=== PATIENT | male | born 1935 | race Caucasian/White ===

== ENCOUNTER 2018-04-01 11:54 | Emergency (ER) | payer MEDICARE, SELFPAY ==
[2018-04-01 11:55] VITALS: BP 146/75; PULSE 80; RESP 18; TEMP 36.6; O2SAT 99; BMI 21.6
--- NOTE | 2018-04-01 12:00 | ED.RN ---
PT PAIN FREE. PT TO ROOM 9. EKG CALLED FOR
--- NOTE | 2018-04-01 12:07 | EKG12_ITS ---
Test Reason : CHEST PAIN Blood Pressure : / mmHG Vent. Rate : 073 BPM Atrial Rate : 073 BPM P-R Int : 184 ms QRS Dur : 070 ms QT Int : 378 ms P-R-T Axes : 061 -01 068 degrees QTc Int : 416 ms Sinus rhythm with Premature atrial complexes Low voltage QRS Possible Inferior infarct , age undetermined Abnormal ECG Confirmed by LYNNE HUTCHINS, BRANDON ([id number]), movie editor LOLI RIGGS ([id number]) on 04/04/2018 9:04:45 AM Referred By: LISA Confirmed By:BRANDON BATISTA MD
--- NOTE | 2018-04-01 12:11 | RAD_ITS ---
STUDY: X-RAY CHEST REASON FOR EXAM: Male, 82 years old. Chest pain TECHNIQUE: Single x2 AP portable view of the chest. COMPARISON: None. FINDINGS: There is a pattern of hyperlucency within the upper lung zones and increased interstitial markings in the lower lung zones. There is focal increased linear density within the record of the left lung base. There is no demonstrated pleural abnormality. Normal size heart. Normal mediastinum and beau. Normal visualized pulmonary arteries. There is atherosclerotic calcification of the aortic arch with tortuosity. There are diffuse degenerative changes of the visualized thoracic spine. Normal visualized ribs, clavicles, and shoulders. There is no demonstrated abnormality of the visualized soft tissue structures of the upper abdomen. RAD/Chest 1 View (Portable) IMPRESSION: Findings suggest possible underlying chronic lung disease. There is right lower lobe atelectasis and/or developing infiltrate. Electronically Signed: Odilia Estrada MD at 13:15 EST Tel , Service support ,
[2018-04-01 12:27] VITALS: BP 122/103; PULSE 74; RESP 14; O2SAT 97
[2018-04-01] MEDS: 0.9% Normal Saline 1,000 ML 150 ML IV (12:28)
[2018-04-01] MEDS: Aspirin 81 MG TAB.CHEW 324 MG PO (12:29)
[2018-04-01 12:41] LABS: Absolute Neutrophil Count 5.2 X10^3/uL (2.0-7.7); Basophil# 0.04 X10^3/uL; Basophil% 0.5 % (0-1); Eosinophils% 1.3 % (0-5); Hematocrit 40.8 % (40-54); Hemoglobin 13.9 g/dl (13.0-16.5); Lymphocyte % 25.5 % (19-41); Mean Corp Hgb Conc 34.1 g/gl (32-36); Mean Corpuscular Hgb 32.3 pg (27.0-32.0); Mean Corpuscular Volume 94.9 fL (80-94); Mean Platelet Vol. 10.3 fl (6.2-12.0); Monocyte# 0.46 X10^3/uL; Monocyte% 5.9 % (0-10); Neutrophil # 5.22 X10^3/uL (2.7-7.7); Neutrophil % 66.7 % (47-70); POSITIVE COUNT NO; POSITIVE DIFFERENTIAL NO; POSITIVE MORPHOLOGY NO; Platelet Count 254 K/mm3 (150-450); RBC Distribution Width CV 12.8 % (11.6-14.6); RBC Distribution Width SD 43.4 fl (35.1-43.9); White Blood Count 7.8 K/mm3 (4.4-11.0)
[2018-04-01 12:48] LABS: D-Dimer Quantitative (DVT/PE) 1.55 FEU/ug/m (0.27-0.49)
--- NOTE | 2018-04-01 12:52 | ED.RN ---
d-dimer 1.55
--- NOTE | 2018-04-01 12:52 | ED.RN ---
aware of d-dimer
--- NOTE | 2018-04-01 12:53 | CT_ITS ---
STUDY: CTA CHEST REASON FOR EXAM: Male, 82 years old. Chest pain and shortness of breath. RADIATION DOSAGE (If Supplied By Facility): CTDIvol = ( 11.74 ) mGy, DLP = ( 400.21 ) mGycm TECHNIQUE: The examination was performed with the intravenous administration of 75CC ml of Isovue 370 contrast material. Post-processing of the angiographic images was performed, with multiplanar reformation and 3D reconstruction. Individualized dose optimization techniques were used for this CT. COMPARISON: None. FINDINGS: Normal enhancement of the main pulmonary artery and right and left pulmonary arteries. Normal enhancement of the bilateral peripheral pulmonary arteries. There is no demonstrated pulmonary embolism. There is atherosclerotic calcification of the aortic arch with tortuosity. There is ectasia of the descending thoracic aorta without actual aneurysm. There is no demonstrated aortic dissection. Normal heart and pericardium. Normal mediastinum. Normal hilar regions. Normal visualized trachea and bronchi. The lungs are hyper expanded, with flattening of the hemidiaphragms. There is evidence for COPD, with diffuse interstitial thickening. There is a 1.1 cm spiculated nodule in the left upper lobe, axial image 183 and coronal image 156. The appearance is strongly suspicious for neoplasm. Normal pleura. There are no pleural effusions. Normal chest wall structures. There are degenerative changes of thoracic spine. Normal visualized upper abdomen. CT/CTA Chest W/WO Contrast IMPRESSION: No evidence for PE. COPD. 1.1 cm spiculated nodule in the left upper lobe, strongly suspicious for neoplasm. Electronically Signed: Gilberto Marquez MD at 14:26 EST , Service support ,
[2018-04-01 12:55] LABS: Anion Gap 9 (5-15); BUN 13 mg/dL (7-18); BUN/Creat Ratio 12.5 RATIO (10-20); Calcium,Total 8.7 mg/dL (8.5-10.1); Chloride 104 mmol/L (98-107); Creatinine, Serum 1.04 mg/dL (0.70-1.30); EST Glomerular Filtration Rate 72 mL/min (>60); Est Glom Filt Rate - Afr Amer 88 mL/min (>60); Estimated Creatinine Clearance 53.52 ml/min; Glucose 114 mg/dL (74-106); Potassium 4.4 mmol/L (3.5-5.1); Sodium Level 137 mmol/L (136-145)
[2018-04-01 14:24] LABS: Mucous, Urine 0 SEEN /hpf (<or=2+); Red Blood Cells-Urine 0 SEEN /hpf (0-5); Squamous Epithelial Cells - UA 0 SEEN /hpf (0-5)
[2018-04-01 14:27] LABS: Color, Urine Yellow (Yellow); Glucose, Dipstick Normal (Normal); Ketone-Dipstick Negative (Negative); Leukocyte Esterase-Dipstick 500 /ul (Negative); Nitrite-Dipstick Negative (Negative); Occult Blood-Urine 25 /ul (Negative); Protein-Dipstick Negative (Negative); Specific Gravity, Urine 1.005 (1.002-1.030); Urine Bilirubin Dipstick Negative (Negative); Urine Clarity Cloudy (Clear); Urine Urobilinogen Normal (Normal)
[2018-04-01 14:32] LABS: Bacteria 2+ /hpf (None Seen); White Blood Cells >100 SEEN /hpf (0-5)
--- NOTE | 2018-04-01 14:56 | ED.DCSUM_ITS ---
- ER Visit Summary Date of Service: 04/01/18 Chief Complaint: [Shortness of breath and generalized weakness.] History of Present Illness: The patient is a 82 M [presents to the emergency department with complaint of shortness of breath and feeling generally weak. Patient states he is not had much energy. Patient states that he had chest discomfort 5 days ago that lasted a couple of days but then resolved. Patient states that it was just the discomfort that he knew was there and he could really feel that when he took a deep breath. Patient states that he has not had chest pain with activity or exertion. He denied any nausea or vomiting with it. He denies any diaphoresis. Patient was seen at urgent care today and advised to come to the emergency department to be evaluated. Patient also states that his last stress test was about 3 years ago and was normal. Patient states that also he has had very dark urine that is been odorous. Patient denies any fevers.] Physical Examination: [HEENT-PERRLA, EOMI. Cranial nerves II through XII grossly intact. TMs clear. Mucous membranes moist. No adenopathy. Cardiovascular-regular rate and rhythm without murmur or ectopy Lungs-clear to auscultation, chest wall stable without crepitus or subcu emphysema Abdomen-normoactive bowel sounds, soft, nontender, no rebound or rigidity, no peritoneal signs. Extremities-intact ?4, normal range of motion, normal pulses, atraumatic] Test Results: [EKG obtained arrival shows sinus rhythm with a ventricular rate of 73 bpm with possible old inferior infarct. CBC with differential showing a 7.8, hemoglobin 13.9, hematocrit 41, platelets 254. Chemistries unremarkable. Troponin was less than 0.015. D-dimer was elevated 1.55. CT scan of the chest with IV contrast ordered showed no evidence for PE or dissection. Patient did have a 1.1 cm spiculated nodule left upper lobe which is suspicious for neoplasm. Urinalysis was positive for 500 leukocyte esterase, greater than 100 WBCs, and +2 bacteria.] Emergency Department Course and Treatment: [Patient was given Rocephin 1 g IV.] Treatment Plan: [Patient does not want to be admitted. He will be started on Keflex and a urine culture was sent. I do not feel his chest pain is cardiac in nature. Patient advised to follow-up with his primary care physician within next 3-5 days.] Disposition: [Discharged home in stable condition] Impression: [UTI Generalized weakness Chest pain-etiology uncertain] This note was generated with [employer] dictation software. It may contain incorrect words, spelling, and punctuation that were not noted in review of the chart prior to signing ED Disposition - Plan for ED Patient: Chief Complaint: Chest Pain Referrals: Lavelle Nolasco MD [Primary Care Provider] -
--- NOTE | 2018-04-01 14:56 | ED.DEP ---
ED Disposition - Plan for ED Patient: Chief Complaint: Chest Pain Instructions: ED Chest Pain Atypical Unkn Cause, ED UTI Cystitis Male Prescriptions: Cephalexin [Keflex] 500 mg PO Q6 #40 cap Referrals: Lavelle Nolasco MD [Primary Care Provider] - 3-5 Days
[2018-04-01 15:21] VITALS: BP 153/105; PULSE 66; RESP 18
[2018-04-01] MEDS: Ceftriaxone 1 GM/50 ML BAG IV (15:23)
== END 2018-04-01 15:51 | disposition home or self-care (01) ==
LOC: ED 12:27
PROVIDERS: Emergency Provider Emergency Medicine; Family Provider Internal Medicine; PCP Internal Medicine
DX: N39.0 Urinary tract infection, site not specified (principal); B96.89 Other specified bacterial agents as the cause of diseases classified elsewhere; R91.1 Solitary pulmonary nodule; R53.1 Weakness; R07.9 Chest pain, unspecified; R06.02 Shortness of breath; I10 Essential (primary) hypertension; I73.9 Peripheral vascular disease, unspecified; N40.0 Benign prostatic hyperplasia without lower urinary tract symptoms; Z79.899 Other long term (current) drug therapy; Z72.0 Tobacco use
CPT/HCPCS: 71045; 71275; 80048; 81001; 84484; 85025; 85379; 87086; 87088; 87186; 93005; 96361; 96365; 99285; J7030; Q9967; A4216

== ENCOUNTER → 2018-07-03 | Outpatient (CLI) | payer MEDICARE, SELFPAY ==
[2018-07-03 12:44] LABS: Erythrocyte Sedimentation Rate 7 mm/hr (0-20)
[2018-07-03 12:50] LABS: Absolute Lymphocyte Count 2.02 X10^3/ul (0.83-4.51); Absolute Neutrophil Count 5.8 X10^3/uL (2.0-7.7); Basophil# 0.02 X10^3/uL; Basophil% 0.2 % (0-1); Eosinophil# 0.13 X10^3/uL; Eosinophils% 1.5 % (0-5); Hematocrit 39.4 % (40-54); Lymphocyte # 2.02 X10^3/ul (4.0); Lymphocyte % 23.2 % (19-41); Mean Corpuscular Hgb 31.5 pg (27.0-32.0); Mean Corpuscular Volume 95.4 fL (80-94); Mean Platelet Vol. 10.7 fl (6.2-12.0); Monocyte# 0.69 X10^3/uL; Monocyte% 7.9 % (0-10); Neutrophil # 5.83 X10^3/uL (2.7-7.7); Platelet Count 257 K/mm3 (150-450); RBC Distribution Width CV 13.3 % (11.6-14.6); RBC Distribution Width SD 46.7 fl (35.1-43.9); Red Blood Count 4.13 M/mm3 (4.6-6.2); White Blood Count 8.7 K/mm3 (4.4-11.0)
[2018-07-03 12:53] LABS: POSITIVE COUNT NO; POSITIVE DIFFERENTIAL NO; POSITIVE MORPHOLOGY NO
[2018-07-03 13:09] LABS: AST(SGOT) 24 U/L (15-37); Alanine Aminotransfer ALT/SGPT 29 U/L (16-61); Albumin, Serum 3.7 g/dL (3.2-5.0); Alkaline Phosphatase 56 U/L (45-117); Anion Gap 6 (5-15); BUN 16 mg/dL (7-18); CRP 3.89 mg/L (0.0-3.0); Calcium,Total 8.8 mg/dL (8.5-10.1); Chloride 105 mmol/L (98-107); Creatinine, Serum 1.14 mg/dL (0.70-1.30); EST Glomerular Filtration Rate 65 mL/min (>60); Est Glom Filt Rate - Afr Amer 79 mL/min (>60); Globulin 3.6 g/dL (2.2-4.2); Glucose 97 mg/dL (74-106); Potassium 4.4 mmol/L (3.5-5.1); Protein, Total 7.3 g/dL (6.4-8.2); Rheumatoid Factor < 10.0 IU/mL (<15); Sodium Level 138 mmol/L (136-145)
[2018-07-05 11:23] LABS: CCP IgG Antibodies 8 units (0-19); HEPATITIS B SURFACE AG Negative (Negative); Hep B Surface Antibodies Non Reactive (.); Hep C Antibodies <0.1 s/co ratio (0.0-0.9)
[2018-07-05 11:25] LABS: ANTINUCLEAR ANTIBODIES DIRECT Negative (Negative)
== END | disposition home or self-care (01) ==
LOC: MTLAB 10:04
PROVIDERS: Family Provider Internal Medicine; PCP Internal Medicine; Referring Provider Internal Medicine Rheumatology; Visit Provider Internal Medicine Rheumatology
DX: M06.4 Inflammatory polyarthropathy (principal); M15.9 Polyosteoarthritis, unspecified; Q66.7 Congenital pes cavus; K21.9 Gastro-esophageal reflux disease without esophagitis; I10 Essential (primary) hypertension; J44.9 Chronic obstructive pulmonary disease, unspecified; I73.9 Peripheral vascular disease, unspecified; I71.2 Thoracic aortic aneurysm, without rupture; E78.5 Hyperlipidemia, unspecified; N40.1 Benign prostatic hyperplasia with lower urinary tract symptoms; H35.373 Puckering of macula, bilateral
CPT/HCPCS: 36415; 80053; 85025; 85652; 86038; 86140; 86200; 86431; 86706; 86803; 87340

== ENCOUNTER → 2018-08-30 14:03 | Outpatient (CLI) | payer MEDICARE, SELFPAY ==
[2018-08-30 15:40] LABS: Absolute Lymphocyte Count 1.92 X10^3/ul (0.83-4.51); Absolute Neutrophil Count 5.8 X10^3/uL (2.0-7.7); Basophil# 0.03 X10^3/uL; Basophil% 0.3 % (0-1); Eosinophil# 0.18 X10^3/uL; Eosinophils% 2.1 % (0-5); Hematocrit 38.7 % (40-54); Hemoglobin 12.8 g/dl (13.0-16.5); Lymphocyte # 1.92 X10^3/ul (4.0); Lymphocyte % 22.3 % (19-41); Mean Corp Hgb Conc 33.1 g/gl (32-36); Mean Corpuscular Hgb 31.1 pg (27.0-32.0); Mean Corpuscular Volume 94.2 fL (80-94); Mean Platelet Vol. 10.7 fl (6.2-12.0); Monocyte# 0.71 X10^3/uL; Monocyte% 8.2 % (0-10); Neutrophil # 5.76 X10^3/uL (2.7-7.7); Neutrophil % 66.9 % (47-70); Platelet Count 256 K/mm3 (150-450); RBC Distribution Width CV 13.5 % (11.6-14.6); RBC Distribution Width SD 44.6 fl (35.1-43.9); Red Blood Count 4.11 M/mm3 (4.6-6.2); White Blood Count 8.6 K/mm3 (4.4-11.0)
[2018-08-30 15:55] LABS: ALB/GLOB Ratio 1.1 RATIO (0.9-2.4); AST(SGOT) 18 U/L (15-37); Alanine Aminotransfer ALT/SGPT 30 U/L (16-61); Albumin, Serum 3.6 g/dL (3.2-5.0); Alkaline Phosphatase 59 U/L (45-117); Anion Gap 5 (5-15); BUN 18 mg/dL (7-18); BUN/Creat Ratio 15.8 RATIO (10-20); Calcium,Total 8.7 mg/dL (8.5-10.1); Chloride 103 mmol/L (98-107); Creatinine, Serum 1.14 mg/dL (0.70-1.30); EST Glomerular Filtration Rate 65 mL/min (>60); Est Glom Filt Rate - Afr Amer 79 mL/min (>60); Globulin 3.4 g/dL (2.2-4.2); Glucose 103 mg/dL (74-106); POSITIVE COUNT NO; POSITIVE DIFFERENTIAL NO; POSITIVE MORPHOLOGY NO; Potassium 3.7 mmol/L (3.5-5.1); Sodium Level 136 mmol/L (136-145)
== END ==
PROVIDERS: Family Provider Internal Medicine; PCP Internal Medicine; Referring Provider Internal Medicine Rheumatology; Visit Provider Internal Medicine Rheumatology
DX: M06.4 Inflammatory polyarthropathy (principal); M15.9 Polyosteoarthritis, unspecified; Q66.7 Congenital pes cavus; K21.9 Gastro-esophageal reflux disease without esophagitis; I10 Essential (primary) hypertension; J44.9 Chronic obstructive pulmonary disease, unspecified; I73.9 Peripheral vascular disease, unspecified; I71.2 Thoracic aortic aneurysm, without rupture; E78.5 Hyperlipidemia, unspecified; N40.1 Benign prostatic hyperplasia with lower urinary tract symptoms; H35.373 Puckering of macula, bilateral
CPT/HCPCS: 36415; 80053; 85025

== ENCOUNTER → 2018-11-29 08:29 | Outpatient (CLI) | payer MEDICARE, SELFPAY ==
[2018-11-29 10:18] LABS: Absolute Lymphocyte Count 1.71 X10^3/uL (0.83-4.51); Absolute Neutrophil Count 6.6 X10^3/uL (2.0-7.7); Basophil# 0.05 X10^3/uL; Basophil% 0.5 % (0-1); Eosinophil# 0.11 X10^3/uL; Eosinophils% 1.2 % (0-5); Hematocrit 39.6 % (40-54); Lymphocyte # 1.71 X10^3/ul (4.0); Lymphocyte % 18.8 % (19-41); Mean Corp Hgb Conc 32.8 g/dL (32-36); Mean Corpuscular Hgb 32.1 pg (27.0-32.0); Mean Corpuscular Volume 97.8 fL (80-94); Mean Platelet Vol. 10.4 fl (6.2-12.0); Monocyte% 6.6 % (0-10); NRBC Flagged by Analyzer 0 % (0-5); Neutrophil # 6.61 X10^3/uL (2.7-7.7); Neutrophil % 72.6 % (47-70); Platelet Count 263 K/mm3 (150-450); RBC Distribution Width SD 47.2 fl (35.1-43.9); Red Blood Count 4.05 M/mm3 (4.6-6.2); White Blood Count 9.1 K/mm3 (4.4-11.0)
[2018-11-29 10:52] LABS: ALB/GLOB Ratio 0.9 RATIO (0.9-2.4); AST(SGOT) 21 U/L (15-37); Alanine Aminotransfer ALT/SGPT 21 U/L (16-61); Albumin, Serum 3.5 g/dL (3.2-5.0); Alkaline Phosphatase 67 U/L (45-117); Anion Gap 8 (5-15); BUN 16 mg/dL (7-18); BUN/Creat Ratio 14.5 RATIO (10-20); Calcium,Total 8.9 mg/dL (8.5-10.1); Chloride 105 mmol/L (98-107); EST Glomerular Filtration Rate 68 mL/min (>60); Est Glom Filt Rate - Afr Amer 82 mL/min (>60); Globulin 3.8 g/dL (2.2-4.2); Glucose 83 mg/dL (74-106); Potassium 4.4 mmol/L (3.5-5.1); Protein, Total 7.3 g/dL (6.4-8.2); Sodium Level 138 mmol/L (136-145)
== END ==
PROVIDERS: Family Provider Internal Medicine; PCP Internal Medicine; Referring Provider Internal Medicine Rheumatology; Visit Provider Internal Medicine Rheumatology
DX: M06.4 Inflammatory polyarthropathy (principal); M15.9 Polyosteoarthritis, unspecified; Q66.7 Congenital pes cavus; K21.9 Gastro-esophageal reflux disease without esophagitis; I10 Essential (primary) hypertension; J44.9 Chronic obstructive pulmonary disease, unspecified; I73.9 Peripheral vascular disease, unspecified; I71.2 Thoracic aortic aneurysm, without rupture; E78.5 Hyperlipidemia, unspecified; N40.1 Benign prostatic hyperplasia with lower urinary tract symptoms; H35.373 Puckering of macula, bilateral; Z79.899 Other long term (current) drug therapy
CPT/HCPCS: 36415; 80053; 85025

== ENCOUNTER → 2019-01-08 07:50 | Outpatient (CLI) | payer MEDICARE, SELFPAY ==
--- NOTE | 2019-01-08 08:30 | PET_ITS ---
EXAMINATION: FDG PET/CT INDICATIONS: An 83-year-old male with reported history of pulmonary nodularity. COMPARISON EXAMINATION: CT of the chest report dated 12/22/18 INDEX LESION SIZE SUV INTERPRETATION Left upper lateral lung zone, left upper lobe 14.1-mm (frame 197) 3.1 Fulfills quantitative criteria for viable neoplasm, histopathologic analysis recommended Right mid anterior hemithorax pulmonary parenchyma, right upper lobe 12.0-mm (frame 180) 5.7 Fulfills quantitative criteria for viable neoplasm, histopathologic analysis recommended TECHNIQUE: Following the intravenous administration of 15.5 mCi of F-18 deoxyglucose via the left antecubital fossa, multiplanar image acquisitions of the neck, chest, abdomen and pelvis to level of mid thigh, obtained at one hour post radiopharmaceutical administration contemporaneously interpreted with the current CT of the neck, chest, abdomen and pelvis to level of mid thigh, dated 01/08/[address] of the chest report dated 12/22/18 reveal: SERUM GLUCOSE LEVEL: 84 mg/dl. HEIGHT: 70 inches. WEIGHT: 155 lbs. FINDINGS: 1. Focal increased glucose metabolism is identified in the left upper lateral hemithorax pulmonary parenchyma, left upper lobe, generating a calculated maximal standard uptake value of 3.1. The maximal axial diameter of the corresponding parenchymal density on review of CT of the chest dated 01/08/19 is 14.1-mm (transverse). 2. Facilitated FDG uptake is defined in the right mid anteromedial lung field, right upper lobe, generating a calculated maximal standard uptake value of 5.7. The maximal axial diameter of the corresponding parenchymal density on review of CT of the chest dated 01/08/19 is 12.0-mm. 3. Normal physiologic distribution of the radiopharmaceutical is apparent in the hepatic (2.5) and splenic parenchyma, both renal units, bladder and visualized intestinal tract. The visualized portion of the cerebral cortex demonstrate symmetric and preserved glucose metabolism. Diffuse radiopharmaceutical concentration is noted in all four quadrants of the abdomen and pelvis. Prominent glucose metabolism is defined in the oral cavity which appears in proximity to dental hardware placement most consistent with a component of metallic reconstruction artifact. (Baron et al, AJR 179:1337, 2002). Pertinent CT findings are as follows: CHEST: A hiatal hernia is defined. Coronary arterial calcification is observed. Atherosclerotic calcification is noted in the thoracic aorta. The maximal axial diameter of the ascending thoracic aorta is 38.3-mm. Emphysematous change is noted in the bilateral upper lung zones. Parenchymal densities defined in the right mid anterior and left upper lateral lung hodgson demonstrate quantitatively significant enhanced glucose metabolism as previously described. Bilateral axillary soft tissue is non-glucose avid. ABDOMEN AND PELVIS: There is atherosclerotic calcification defined in the abdominal aorta without evidence of dilatation-aneurysm formation. Abdominal-pelvic arterial calcification is observed. Bilateral inguinal soft tissue densities with fatty hilus formation are non-glucose avid. Colonic diverticulosis is defined without evidence of diverticulitis. SKELETAL: Degenerative changes are noted in the cervical, thoracic and lumbar spine. PET/PET/CT Tumor Base -Thigh Init IMPRESSION: 1. Increased glucose concentration observed in the left upper lateral and right mid anterior lung hodgson, to include the left upper and right upper lobes, fulfill quantitative criteria for viable neoplasm. Histopathologic analysis is recommended. 2. Prominent radiopharmaceutical concentration observed in the oral cavity in proximity to dental hardware placement is most consistent with metallic reconstruction artifact. If soft tissue mass formation is a diagnostic consideration, clinical examination is recommended. Electronic Signature Modesto Verdugo D.O. Electronically Signed: Modesto Verdugo DO at 22:27 EDT Tel , Service support ,
== END ==
PROVIDERS: Family Provider Internal Medicine; PCP Internal Medicine; Referring Provider Internal Medicine Pulmonary Disease; Visit Provider Internal Medicine Pulmonary Disease
DX: R91.1 Solitary pulmonary nodule (principal)
CPT/HCPCS: 78815; A9552

== ENCOUNTER → 2019-01-23 08:15 | Outpatient (CLI) | payer MEDICARE, SELFPAY ==
[2019-01-23] VITALS (12 sets, daily range): BP systolic 121–197; BP diastolic 69–109; PULSE 57–68; RESP 12–24; TEMP 36.5; O2SAT 18–99; BMI 22.2
--- NOTE | 2019-01-23 | IMM_PTH ---
PATIENT: SUNNY MILLER LOC: CT U#:[id number] AGE/SX: 89/M ROOM: RE01/23/[address]: Dr. Jona Fierro MD : 1935 BED: DIS: SPEC #: [id number] RECD: 01/24/19 11:19 STATUS: JOELLE REQ #: [id number] REMIGIO: 01/23/19 00:[address]: Jona Fierro DEPT: IMMUNOHISTOCHEMISTRY RECD BY: Kylie Pool ENTERED: 01/24/19 11:21 SP TYPE: IMMUNO OTHR DR: Dr. Lavelle Nolasco MD Tissues: Lung, NOS Procedures: Synapto (add) CD45 (add) CD56 (add) CEA (add) CHROMO (add) CK20 (add) CK7 (add) CK8 (add) KI-67 (add) TTF1 (add) Pankeratin (initial) NSE (add) PHYSICIAN & INSTITUTION [place] [id number] SPECIMEN INFORMATION: Tissue Source: Right upper lobe lung mass, CT-guided core biopsy Clinical Info: Right upper lobe lung mass Specimen Number: [id number] CPT code: 49577, 58895 x11 METHODOLOGY: Deparaffinized sections of prefer/formalin-fixed tissue or PAP/DQ stained slides are incubated with monoclonal/polyclonal antibodies/oligonucleotide probes. Localization is made via biotin free immunoperoxidase method. Appropriate controls are performed and reacted as expected. Results on target cell population are indicated in the following table: RESULTS: ANTIBODY / CLONE RESULT AE1-3 (AE1/AE3/PCK26) positive CK7 (OV-TL12/30) positive CK8 (38qtqsJ68) positive CK20 (KS20.8) negative CD45 (RP2/18) negative CD56 (123C3.D5) positive Chromo (LK2H10) positive Synapto (polyclonal) positive NSE Neuron Specific Enolase negative CEA (11-7/TF-3HB-1) positive Ki-67 (30-9) positive, >90% TTF-1 (8G7G3/1) positive These tests were developed and their performance characteristics determined by [facility]. They may not have been cleared or approved by the U.S. Food and Drug Administration. The FDA has determined that such clearance or approval is not necessary. The above immunohistochemical/dualISH markers are ordered and reviewed by the Pathologist. 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 AM:amy 01/25/19 Case has been reviewed in consultation with Dr. Black who concurs with the above diagnosis. IDC:SJ
--- NOTE | 2019-01-23 08:32 | CT_ITS ---
PROCEDURE: CT GUIDED CORE NEEDLE BIOPSY OF A right upper lobe LUNG LESION INDICATION: Male, 83 years old. Right upper and left upper lobe lung nodules. PHYSICIAN: Dr. Scottie Zelaya CONSENT: Written informed consent was obtained having explained the risks, benefits and alternatives in detail with the patient who accepted the risks and agreed to proceed. Laboratory review and clinical assessment was performed. CONSCIOUS SEDATION PROTOCOL: The Drugs used were: 2 mg Versed, IV., and 50 mcg Fentanyl, IV. The sedation time was: 19 minutes. Conscious sedation was started at 9:51 AM and terminated at 10:10 AM. The conscious sedation protocol was independently monitored. RADIATION DOSAGE (If Supplied By Facility): CTDIvol = ( 21 ) mGy, DLP = ( 345.16 ) mGycm Individualized dose optimization techniques were used for this CT. TECHNIQUE: The patient was placed in the supine position. A noncontrast CT was performed to localize the lesion in the right upper lobe . The skin surface was prepped and draped in a sterile fashion. 1% lidocaine was used for local anesthesia. Using CT guidance, a 20-gauge coaxial biopsy device was advanced to the periphery of the lesion. A total of 5 core specimens were obtained. The specimens were placed in a formalin solution. A post procedure CT demonstrated no adverse sequelae or pneumothorax. The patient tolerated the procedure well without adverse event. A negative biopsy does not exclude malignancy. Further imaging or clinical followup based on patient condition and degree of clinical suspicion for malignancy. Suggest rebiopsy, if biopsy results do not match with clinical scenario. CT/Biopsy/Inj or Needle Placement IMPRESSION: 1. CT directed core needle biopsy of the right upper lobe lung nodule using CT image guidance with image documentation as described. Pathology results are pending. 2. Conscious Sedation protocol utilized with independent monitoring. Electronically Signed: Anthony Rubin, at 11:14 EDT , Service support ,
[2019-01-23 08:34] LABS: Hematocrit 45.6 % (40-54); Hemoglobin 14.7 g/dL (13.0-16.5); Mean Corp Hgb Conc 32.2 g/dL (32-36); Mean Corpuscular Hgb 31.7 pg (27.0-32.0); Mean Corpuscular Volume 98.5 fL (80-94); Mean Platelet Vol. 9.9 fl (6.2-12.0); Platelet Count 259 K/mm3 (150-450); RBC Distribution Width CV 13.1 % (11.6-14.6); RBC Distribution Width SD 47.4 fl (35.1-43.9); Red Blood Count 4.63 M/mm3 (4.6-6.2); White Blood Count 7.5 K/mm3 (4.4-11.0)
[2019-01-23 08:42] LABS: International Normalized Ratio 1.1; Prothrombin Time (Protime)PT. 13.6 SECONDS (11.7-14.9)
[2019-01-23] MEDS: Midazolam 2 MG/2 ML Syringe IV (09:51)
[2019-01-23] MEDS: 0.9% Saline Lock 10 ML Syringe IV (09:51)
[2019-01-23] MEDS: fentaNYL 100 MCG/2 ML Ampul IV (09:51)
--- NOTE | 2019-01-23 10:05 | ASPIGT_PTH ---
PATIENT: SUNNY MILLER LOC: [place] U#:[id number] AGE/SX: 89/M ROOM: RE01/23/[address]: Dr. Jona Fierro MD : 1935 BED: DIS: SPEC #: [id number] RECD: 01/23/19 10:39 STATUS: JOELLE REMeseret #: [id number] REMIGIO: 01/23/19 10:[address]: Jona Fierro DEPT: SURGICAL PATHOLOGY RECD BY: Abdoul Sebastian ENTERED: 01/23/19 10:39 SP TYPE: ASP RAD OTHR DR: Dr. Lavelle Nolasco MD Tissues: Lung, NOS Procedures: FNA Specimen Adequacy Special Stain Group II Surgery Specimen Level IV Imprint (control) HEADER OPERATION: CT-guided right lung biopsy PRE-OP DIAGNOSIS: Right lung mass TISSUE SUBMITTED: Right upper lobe lung mass, CT-guided core biopsy MICROSCOPIC DIAGNOSIS Right upper lobe of lung mass, CT guided needle core biopsy: Positive for malignant cells consistent with small cell carcinoma. COMMENT The specimen is evaluated at the time of biopsy by Dr. Black. Immediate Evaluation = Atypical cells noted suspicious for malignancy. Case has been reviewed in consultation with Dr. Black who concurs with the above diagnosis. IDC:SHIRA MICROSCOPIC DESCRIPTION Slides are reviewed. GROSS DESCRIPTION Received in fixative is one container labeled with the patient's name and designated right lung biopsy. The specimen consists of multiple irregular fragments of kathleen soft tissue that in aggregate measure 0.3 x 0.1 x <0.1 cm. The entire specimen is submitted in one cassette. / SHIRA:amy 01/23/19 TC:0 CPT:45428,09136
--- NOTE | 2019-01-23 10:15 | RAD_ITS ---
STUDY: X-RAY CHEST REASON FOR EXAM: Male, 83 years old. Immediate postright lung biopsy radiograph TECHNIQUE: AP inspiration and expiration views. COMPARISON: Comparison is made with prior study dated September 29, 2018. FINDINGS: Approximately 5-10% right pneumothorax on the immediate post right lung biopsy radiograph. The patient is asymptomatic at this time. Follow-up will be obtained. RAD/Chest Insp/Exp 2 View IMPRESSION: Small right pneumothorax on the immediate post right lung biopsy. Electronically Signed: Anthony Rubin, at 11:03 EDT , Service support ,
--- NOTE | 2019-01-23 11:01 | RAD_ITS ---
STUDY: X-RAY CHEST REASON FOR EXAM: Male, 83 years old. Chest pain and shortness of breath following a right lung biopsy. TECHNIQUE: Single AP portable view of the chest. COMPARISON: Comparison is made with prior study earlier today. FINDINGS: EKG electrodes are seen. The right-sided pneumothorax has progressed. The patient is referred to the emergency department for treatment. RAD/Chest 1 View IMPRESSION: Increased right pneumothorax. Appropriate therapy will be instituted. Electronically Signed: Anthony Rubin, at 13:02 EDT , Service support ,
== END ==
PROVIDERS: Family Provider Internal Medicine; PCP Internal Medicine; Referring Provider Internal Medicine Pulmonary Disease; Visit Provider Internal Medicine Pulmonary Disease
DX: R91.1 Solitary pulmonary nodule (principal); J95.811 Postprocedural pneumothorax
CPT/HCPCS: 32405; 77012; 36415; 71045; 71046; 85027; 85610; 88172; 88305; 88313; 88341; 88342; 99156; 99157; J7040; A4216

== ENCOUNTER 2019-01-23 11:23 | Observation (INO) | payer MEDICARE, SELFPAY ==
[2019-01-23] VITALS (7 sets, daily range): BP systolic 111–190; BP diastolic 63–111; PULSE 59–71; RESP 15–24; TEMP 36.3–37.1; O2SAT 92–99; BMI 22.2; BMI 21.4; BMI 21.5
--- NOTE | 2019-01-23 11:54 | ED.VISSUMM ---
- ER Visit Summary Date of Service: 01/23/19 Chief Complaint: Right pneumothorax status post lung biopsy History of Present Illness: The patient is a 83 M 2 hypertension, peripheral arterial disease and high cholesterol. Patient was having lung biopsy done in radiology today. He developed a pneumothorax post biopsy. He is having mild shortness of breath. Prior to the procedure he said he felt fine. He is on a blood thinner which is been stopped for the last 4 to 5 days due to the procedure. Physical Examination: Older male no acute distress. Sitting upright at bedside. Vital signs are stable his pulse ox is 94% on 2 L. H EENT exam unremarkable. Neck nontender. Lungs diminished on the right. No crepitance or subcu air. Heart regular rhythm rate about 70 no murmur. Abdomen soft nontender. Patient moving all 4 extremities no edema. Neurologically is awake and alert with no focal motor deficits. Test Results: Chest x-ray prior to arrival in the emergency department shows a moderate sized right thorax. There also is a density in both upper lung hodgson this is what they previously biopsied I believe. Post Heimlich valve thoracostomy tube insertion the right lung is currently well inflated. The thoracostomy tube in to the chest cavity about 2 inches. There is a small amount of subcu air at the insertion site. Emergency Department Course and Treatment: Patient be set up for a right sided Heimlich valve thoracostomy tube. Seizure note. I explained the procedure to the patient. His right lateral chest wall was cleaned with iodine. Locally anesthetized with Xylocaine. And at about nipple level I want above the rib in place the Heimlich valve. Patient tolerated procedure well. Under local anesthetic initially did not need anything for pain. He then had some discomfort and was given morphine IV and Zofran. Post insertion chest tube the lung currently is well expanded. Treatment Plan: For pain control patient will be admitted overnight. Have spoken to the hospitalist and the casting molder applications architect today. Disposition: 23-hour observation. Impression: Acute right-sided pneumothorax status post CAT scan guided lung biopsy Heimlich valve placed by emergency physician Admission for pain control This note was generated with [employer] dictation software. It may contain incorrect words, spelling, and punctuation that were not noted in review of the chart prior to signing ED Disposition - Plan for ED Patient:
--- NOTE | 2019-01-23 13:53 | RAD_ITS ---
STUDY: X-RAY CHEST REASON FOR EXAM: Male, 83 years old. Chest tube placement for right pneumothorax. TECHNIQUE: Single AP portable view of the chest. COMPARISON: Comparison is made with prior study earlier in the day. FINDINGS: A small caliber right-sided chest tube has been placed. The tip is in the mid lateral aspect of the right hemithorax. Minimal residual right apical pneumothorax. The lungs are clear and expanded. There is no demonstrated pleural abnormality. Normal size heart. Normal mediastinum and beau. Normal visualized pulmonary arteries. There is atherosclerotic calcification of the aortic arch with tortuosity. Mild degree of right subcutaneous emphysema. RAD/Chest 1 View (Portable) IMPRESSION: Status post placement of a small-caliber right-sided chest tube with mild residual right apical pneumothorax. Small amount of right subcutaneous emphysema. Electronically Signed: Anthony Rubin, at 14:24 EDT , Service support ,
--- NOTE | 2019-01-23 14:19 | ED.RN ---
PT COMPLAINING OF SEVERE PAIN APPROX 15 MIN AFTER CHEST TUBE, DR MEJIA IN ROOM, XRAY IN ROOM, NEW ORDERS FOR PAIN PAIN PER MD.
[2019-01-23] MEDS: Morphine 4 MG/ML Syringe IV ×2 (14:23→14:37)
[2019-01-23] MEDS: Ondansetron 4 MG/2 ML Vial IV (14:24)
--- NOTE | 2019-01-23 15:25 | HP.PCM_ITS ---
Problem List (1) Pneumothorax after biopsy Status: Acute History of Present Illness Date of Admission: 01/23/19 Chief Complaint: chest pain The patient is a 83 year old M who underwent a CT-guided biopsy of a lung mass today. Patient developed chest pain and was found to have a pneumothorax. Sent to the emergency room and had a Heimlich chest tube placed by the emergency room physician. Follow-up chest x-ray showed significant improvement of the pn eumothorax. Patient was having significant pain in his chest and patient did receive a total of 12 mg of morphine in the emergency room which did significantly improve his pain still is persistent. Patient was a short of breath but that is improving as well. Patient is never had a pneumothorax before. [] Past Medical History Past Medical History (Chronic Problems): Chronic Problems Tobacco dependence syndrome (Chronic) PVD (peripheral vascular disease) (Chronic) HTN (hypertension) (Chronic) BPH (benign prostatic hyperplasia) (Chronic) Allergies ciprofloxacin Allergy (Verified 01/23/19 11:27) Hives Home Medications: Ambulatory Orders Medication Instructions Recorded Cilostazol 100 mg PO BID 04/01/18 Enalapril Maleate [Vasotec] 5 mg PO DAILY 04/01/18 Omeprazole 40 mg PO DAILY 04/01/18 Oxybutynin Chloride [Oxybutynin 30 mg PO DAILY 04/01/18 Chloride ER] Simvastatin 20 mg PO DAILY 04/01/18 traMADol [Ultram] 50 mg PO BID PRN PRN 04/01/18 Acetaminophen [Tylenol Extra 500 mg PO BID PRN 01/23/19 Strength] Alfuzosin HCl [Alfuzosin HCl ER] 10 mg PO DAILY 01/23/19 Aspirin [Aspirin, Baby] 81 mg PO DAILY@0800 01/23/19 Folic Acid 2 mg PO DAILY 01/23/19 Meloxicam [Mobic] 15 mg PO DAILY 01/23/19 Methotrexate Sodium [Methotrexate] 15 mg PO SA 01/23/19 Multivit-Min/FA/Lycopen/Lutein 1 tab PO DAILY 01/23/19 [Centrum Silver Men Tablet] leucovorin tablet 2.5 mg PO WOO 01/23/19 Smoking Status: Current every day smoker - *Family History Maternal History Items: - - No cancer Review of Systems Constitutional: Denies: Anorexia, Fever, Night Sweats Eyes: Denies: Blurred vision, Double vision HEENT: Denies: Head Aches, Sinus Congestion, Sinus Drainage Cardiovascular: Reports: Chest Pain. Denies: Edema Respiratory: Reports: Shortness of Breath. Denies: Cough Gastrointestinal: Denies: Abdominal Pain, Nausea, Vomiting Comment: All review systems are good except for as mentioned above and in HPI. VTE Information - Inpt Only VTE Present on Admission: No VTE Mechan Device Prophylaxis: None VTE Pharm Prophylaxis ordered?: No Reason prophylaxis not ordered:: Procedure Not Indicated Patient Problems: Active and Suspected Problems Pneumothorax after biopsy (Acute) - Physical Exam Vitals/I&O's: Vital Signs Temp Pulse Resp BP Pulse Ox 36.6 C 66 18 140/77 H 93 01/23/19 11:24 01/23/19 14:51 01/23/19 14:51 01/23/19 14:51 01/23/19 14:51 Oxygen Flow Rate (L/min) 6 Oxygen Delivery Method Nasal Cannula Weight: 70.307 kg Body Mass Index (BMI) 22.2 General: Alert, Cooperative, No apparent distress, - - Side of the bed hunched over a bedside table. No conversational dyspnea. Patient's on nasal cannula is in his mouth. HEENT: Atraumatic, Normocephalic Oral: Moist Mucosa, No Gingival or Mucosal Lesions/ Ulcerations Neck: No Nodes, Trachea Midline Lungs: Normal air movement, No rhonchi, No wheeze, - - Crackles right lower lobe Cardiovascular: Regular rate, Regular Rhythm, Normal S1, Normal S2, No murmurs Abdomen: Bowel Sounds Present, Soft, Non Tender, Non-Distended Extremities: No edema, No Calf Tenderness, Cyanosis Skin: No rashes, No breakdown Musculoskeletal: No Tenderness to Palpation of Joints or Extremities, No Muscle Wasting Neurological: Muscle tone normal, Sensory exam intact to light touch and pain Psych/Mental Status: Appropriate, Anxious Clinical Impression(s) from Imaging Studies Chest X-Ray 01/23/19 13:53 IMPRESSION: Status post placement of a small-caliber right-sided chest tube with mild residual right apical pneumothorax. Small amount of right subcutaneous emphysema. Electronically Signed: Anthony Rubin, at 14:24 EDT , Service support , Assessment/Plan All Active Problems Pneumothorax after biopsy (Acute) 1. Pneumothorax * Iatrogenic from biopsy but may also be called given by the patient's underlying COPD * Improved from insertion of the Heimlich valve * Pulmonary on consult to guide length of time to keep the chest tube in place * Repeat chest x-ray in the morning * Patient with chest pain post biopsy and pneumothorax. Improved at this time. Patient advised that his pain will be completely eradicated most likely but plan is to help mitigate the pain but also keep him functional as well. 2. VTE prophylaxis: Low risk as the patient is observation status at this time. 3. Advanced care planning: Patient wishes to be DNR Comfort Care arrest with no intubation. Case discussed with the patient's at bedside. Code Visit OBSV E&M: 42160 Initial observation care L3
[2019-01-23] MEDS: Tamsulosin HCl 0.4 MG Capsule PO (18:29)
[2019-01-23] MEDS: Cilostazol 50 MG Tablet 100 MG PO (18:29)
[2019-01-23] MEDS: Lisinopril 5 MG Tablet PO (18:31)
[2019-01-23] MEDS: Folic Acid 1 MG Tablet 2 MG PO (18:31)
[2019-01-23] MEDS: Aspirin 81 MG TAB.CHEW PO (18:33)
[2019-01-23] MEDS: Atorvastatin Calcium 10 MG Tablet PO (20:58)
[2019-01-24 02:16] VITALS: BP 90/48; PULSE 66; RESP 18; TEMP 36.8; O2SAT 94
[2019-01-24 03:57] VITALS: BP 89/56; PULSE 69; RESP 18; TEMP 37.1; O2SAT 96
[2019-01-24 05:52] VITALS: BP 115/67; PULSE 84; RESP 18; TEMP 36.6; O2SAT 95
[2019-01-24 08:20] VITALS: BP 104/59; PULSE 73; RESP 16; TEMP 36.9; O2SAT 97
[2019-01-24] MEDS: Cilostazol 50 MG Tablet 100 MG PO (08:20)
[2019-01-24] MEDS: Meloxicam 15 MG Tablet PO (08:21)
[2019-01-24] MEDS: Multivitamins,Ther W-Minerals Tablet 1 TABLET PO (08:21)
[2019-01-24] MEDS: Tolterodine Tartrate 4 MG CAP.SA PO (08:22)
[2019-01-24] MEDS: Pantoprazole Sodium 40 MG Tablet PO (08:22)
[2019-01-24] MEDS: Lisinopril 5 MG Tablet PO (08:26)
[2019-01-24] MEDS: Aspirin 81 MG TAB.CHEW PO (08:26)
[2019-01-24] MEDS: Folic Acid 1 MG Tablet 2 MG PO (08:26)
--- NOTE | 2019-01-24 09:02 | RAD_ITS ---
STUDY: X-RAY CHEST REASON FOR EXAM: Male, 83 years old. Pneumothorax TECHNIQUE: Single frontal view of the chest. COMPARISON: The prior day. FINDINGS: Interval removal of the chest tube. No significant residual pneumothorax. Small subcutaneous emphysema in the right superior chest wall. Cardiac silhouette unremarkable. Pulmonary vascularity unremarkable. Aorta unremarkable. No focal airspace opacities. No pleural effusions. Upper abdomen unremarkable. Osseous structures intact. No pneumothorax. RAD/Chest 1 View (Portable) IMPRESSION: Removal of chest tube. No significant residual pneumothorax is identified. Electronically Signed: Tj Scruggs, at 13:07 EDT Tel , Service support ,
--- NOTE | 2019-01-24 10:59 | DCINST_ITS ---
- Discharge Diagnoses Current Active Problems: Current Active and Chronic Problems Pneumothorax after biopsy (Acute) You will use the following diet at home:: Cardiac Your food should be the consistency of: Regular Your liquids should be the consistency of: Regular/Thin Discharge Activity: Return to Normal Activity Call your doctor if you observe: Fever of 101 or Higher, Shortness of breath, Dizziness, Fainting spells, Swelling in the ankles, Chest pain, Increased palpitations (irregular heartbeat) Allergies/Adverse Reactions: Allergies ciprofloxacin Allergy (Verified 01/23/19 11:27) Hives Medications to take at Discharge Cilostazol 100 mg PO BID 04/01/18 Enalapril Maleate [Vasotec] 5 mg PO DAILY 04/01/18 Omeprazole 40 mg PO DAILY 04/01/18 Oxybutynin Chloride [Oxybutynin Chloride ER] 30 mg PO DAILY 04/01/18 Simvastatin 20 mg PO DAILY 04/01/18 traMADol [Ultram] 50 mg PO BID PRN PRN 04/01/18 Acetaminophen [Tylenol Extra Strength] 500 mg PO BID PRN 01/23/19 Alfuzosin HCl [Alfuzosin HCl ER] 10 mg PO DAILY 01/23/19 Aspirin [Aspirin, Baby] 81 mg PO DAILY@0800 01/23/19 Folic Acid 2 mg PO DAILY 01/23/19 Meloxicam [Mobic] 15 mg PO DAILY 01/23/19 Methotrexate Sodium [Methotrexate] 15 mg PO SA 01/23/19 Multivit-Min/FA/Lycopen/Lutein [Centrum Silver Men Tablet] 1 tab PO DAILY 01/23/19 leucovorin tablet 25 mg PO WOO 01/23/19 Primary Care Physician: Lavelle Nolasco MD [Primary Care Provider] - Please follow up with your Primary Care Physician in: 3-5 days Test Results: Test results from this visit will be discussed in further detail at your follow- up appointment, if applicable.
--- NOTE | 2019-01-24 11:02 | PCM.DC.SUM ---
Discharge Date and Diagnosis - Problem List Patient Problems: Active and Suspected Problems Pneumothorax after biopsy (Acute) Date of Admission: 01/23/19 Date of Discharge: 01/24/19 - Primary Discharge Diagnosis Active and Suspected Problems Pneumothorax after biopsy (Acute) - Secondary Discharge Diagnosis Chronic Problems Tobacco dependence syndrome (Chronic) PVD (peripheral vascular disease) (Chronic) HTN (hypertension) (Chronic) BPH (benign prostatic hyperplasia) (Chronic) Hospital Course and Treatment Imaging Results: CXR: IMPRESSION: Status post placement of a small-caliber right-sided chest tube with mild residual right apical pneumothorax. Small amount of right subcutaneous emphysema. CXR: Consults: Pulmonology Operations: None Procedures: - - Lung Biopsy and chest tube placement Summary of Care Provided: Per HPI: The patient is a 83 year old M who underwent a CT-guided biopsy of a lung mass today. Patient developed chest pain and was found to have a pneumothorax. Sent to the emergency room and had a Heimlich chest tube placed by the emergency room physician. Follow-up chest x-ray showed significant improvement of the pneumothorax. Patient was having significant pain in his chest and patient did receive a total of 12 mg of morphine in the emergency room which did significantly improve his pain still is persistent. Patient was a short of breath but that is improving as well. Patient is never had a pneumothorax before. Hospital Course: 1. Post-lung biopsy pneumothorax-83 yo M with a h/o of a lung mass had a biopsy done in radiology on the day of admission and after the procedure he had a pneumothorax. He was sent to the ED where a chest tube was placed. This morning he was feeling well and on exam it was noticed that his chest tube had fallen out. The bandage was removed and a repeat CXR was obtained which was normal without a pneumothorax. Pulmonology was consulted to assist in his management and felt that since there was no pneumo on repeat CXR after the chest tube had fallen out, he could be discharged without any pulmonary follow-up unless he became symptomatic which was discussed with him. He was discharged today and he will need to f/u with his PCP as an outpatient. The risks and benefits of discharge were discussed with him and expressed understanding. 2. His other medical diagnoses were evaluated and his home medications were continued where appropriate. Patient Problems: Active and Suspected Problems Pneumothorax after biopsy (Acute) - Physical Exam Vitals/I&O's: Vital Signs Temp Pulse Resp BP Pulse Ox 98.5 F 73 16 104/59 L 97 01/24/19 08:20 01/24/19 08:20 01/24/19 08:20 01/24/19 08:20 01/24/19 08:20 Oxygen Flow Rate (L/min) 2 Oxygen Delivery Method Room Air Weight: 151 lb 12.8 oz Body Mass Index (BMI) 21.4 Intake and Output for Last 24 Hours 01/22/19 01/23/19 01/24/19 23:59 23:59 23:59 Intake Total 240 / 740 1300 / 1300 Balance 240 / 740 1300 / 1300 General: Alert, Oriented x3, Cooperative, No apparent distress HEENT: Atraumatic, PERRLA, EOMI, Normocephalic Oral: Moist Mucosa Neck: Supple, No JVD Lungs: Clear to auscultation, Normal air movement, No rhonchi, No wheeze, No rales, - - Chest fell out on its own Cardiovascular: Regular rate, Regular Rhythm, Normal S1, Normal S2, No murmurs Abdomen: Soft, Non Tender, Non-Distended, No Hepato-splenomegaly Extremities: No edema, Capillary Refill Less than 3 Seconds Skin: No rashes, No breakdown Neurological: Neuro grossly intact, Sensory exam intact to light touch and pain Psych/Mental Status: Normal Affect, Appropriate Current Medications Acetaminophen (Tylenol) 650 mg PO Q6H PRN PRN PRN Reason: Pain Score 1-3/Temp > 100.7 F Albuterol Sulfate (Ventolin Aerosols) 2.5 mg INHALATION Q2H PRN PRN PRN Reason: Shortness of Breath/Wheezing Aspirin (Aspirin, Baby) 81 mg PO DAILY@0800 [facility] Last Admin: 01/24/19 08:26 Dose: 81 mg Documented by: Atorvastatin Calcium (Lipitor) 10 mg PO QHS [facility] Last Admin: 01/23/19 20:58 Dose: 10 mg Documented by: Cilostazol (Pletal) 100 mg PO BIDAC [facility] Last Admin: 01/24/19 08:20 Dose: 100 mg Documented by: Dextrose (D50w Syringe) 0 gm IV X1 PRN; Protocol PRN Reason: Hypoglycemia Folic Acid (Folic Acid) 2 mg PO DAILYCM [facility] Last Admin: 01/24/19 08:26 Dose: 2 mg Documented by: Glucagon () 1 mg IM .X1 PRN PRN Reason: Hypoglycemia Leucovorin Calcium () 25 mg PO WOO [facility] Lisinopril (Zestril) 5 mg PO DAILY [facility] Last Admin: 01/24/19 08:26 Dose: 5 mg Documented by: Melatonin (Melatonin) 3 mg PO QHS PRN PRN PRN Reason: INSOMNIA Meloxicam (Mobic) 15 mg PO DAILY [facility] Last Admin: 01/24/19 08:21 Dose: 15 mg Documented by: Methotrexate (Methotrexate) 15 mg PO [facility] Morphine Sulfate () 2 mg IV Q3H PRN PRN PRN Reason: breakthrough pain Multivitamins/Minerals (Multivitamin With Minerals) 1 tablet PO DAILY@0800 [facility] Last Admin: 01/24/19 08:21 Dose: 1 tablet Documented by: Ondansetron HCl (Zofran) 4 mg IV Q8H PRN PRN PRN Reason: NAUSEA/VOMITING Oxycodone HCl (Oxyir) 5 mg PO Q4H PRN PRN PRN Reason: Pain Score 4-5/10 Oxycodone HCl (Oxyir) 10 mg PO Q4H PRN PRN PRN Reason: Pain Score 6-10/10 Pantoprazole Sodium (Protonix) 40 mg PO DAILY [facility] Last Admin: 01/24/19 08:22 Dose: 40 mg Documented by: Senna/Docusate Sodium (Senokot-S, Megan-Colace) 2 tablet PO BID PRN PRN PRN Reason: Constipation Tamsulosin HCl (Flomax) 0.4 mg PO DAILY@1730 [facility] Last Admin: 01/23/19 18:29 Dose: 0.4 mg Documented by: Tolterodine Tartrate (Detrol La) 4 mg PO DAILY [facility] Last Admin: 01/24/19 08:22 Dose: 4 mg Documented by: Discharge Activity: Return to Normal Activity Call your doctor if you observe: Fever of 101 or Higher, Shortness of breath, Dizziness, Fainting spells, Swelling in the ankles, Chest pain, Increased palpitations (irregular heartbeat) Home Medications: Medications to take at Discharge Cilostazol 100 mg PO BID 04/01/18 Enalapril Maleate [Vasotec] 5 mg PO DAILY 04/01/18 Omeprazole 40 mg PO DAILY 04/01/18 Oxybutynin Chloride [Oxybutynin Chloride ER] 30 mg PO DAILY 04/01/18 Simvastatin 20 mg PO DAILY 04/01/18 traMADol [Ultram] 50 mg PO BID PRN PRN 04/01/18 Acetaminophen [Tylenol Extra Strength] 500 mg PO BID PRN 01/23/19 Alfuzosin HCl [Alfuzosin HCl ER] 10 mg PO DAILY 01/23/19 Aspirin [Aspirin, Baby] 81 mg PO DAILY@0800 01/23/19 Folic Acid 2 mg PO DAILY 01/23/19 Meloxicam [Mobic] 15 mg PO DAILY 01/23/19 Methotrexate Sodium [Methotrexate] 15 mg PO SA 01/23/19 Multivit-Min/FA/Lycopen/Lutein [Centrum Silver Men Tablet] 1 tab PO DAILY 01/23/19 leucovorin tablet 25 mg PO WOO 01/23/19 Primary Care Physician: Lavelle Nolasco MD [Primary Care Provider] - Please follow up with your Primary Care Physician in: 3-5 days Disposition: Home Minutes spent on discharge:: 35 Patient Condition:: Stable Medical Necessity - Tobacco Use Smoking Status: Current every day smoker Tobacco Use: Cigarettes Meaningful Use Info Meaningful Use Diagnoses (Choose all that apply): None applicable Code Visit OBSV E&M: 34385 Observation care discharge
--- NOTE | 2019-01-24 11:25 | CASEMGMT ---
RN CM [employer] CM to room to meet with patient for initial transition planning/care coordination assessment. RN RASHAD introduced self and role at [facility]. Pt voices understanding and consents to assessment at this time. Pt sitting on edge of bed in no distress at this time. @ bedside. Pt is A/O at this time and answers all questions appropriately. Care providers, pharmacy, and demographics verified at this time. PCP: Gaurav Specialists: Sri--pulmonology Preferred [facility]acy: [facility] Insurance: [employer] [facility] Prescription Benefit: Yes Living Will/HPOA: Has both LW and HCPOA, who is his , Radha. LNOK: , Radha. 2 sons: Chaim and Flavio Living Arrangements: Lives with his in 2-story home w/basement. Denies difficulty with stairs. Independent. and pt share home mgmt tasks. Transportation: Pt states drives self and states no transportation concerns at this time. will drive pt home @ d/c. DME: Denies using any DME and denies needs. HHC/SNF: No history of either and denies needs. No needs identified. Pt wishes to return home and states has no concerns with going home at time of discharge. Pt states he has smoked for 70 years and does not have any interested in quitting/smoking cessation information. CM to follow for any discharge planning/needs. Pt and voice no further concerns/needs at this time. Advised them to ask for CM if any further questions/concerns/needs arise. They voice understanding. PLAN: Home w/spousal support and discharge plans in place. Steven AUGUSTINE RN, CM
--- NOTE | 2019-01-24 11:55 | CON.PCM_ITS ---
Problem List (1) Pneumothorax after biopsy Status: Acute (2) Tobacco dependence syndrome Status: Chronic (3) PVD (peripheral vascular disease) Status: Chronic (4) HTN (hypertension) Status: Chronic Qualifiers: Hypertension type: essential hypertension Qualified Code(s): I10 - Essential (primary) hypertension (5) BPH (benign prostatic hyperplasia) Status: Chronic Reason for Consult Date of Consultation: 01/24/19 Reason for Consultation: Pneumothorax History of Present Illness: The patient is a 83 year old M, with past medical history listed below, who presented to [facility] on 01/23/2019 secondary to chest pain and severe shortness of breath following a CT-guided lung biopsy. Patient states that shortness of breath developed slowly after the procedure. Patient was discharged and started to have more chest pain, so came back to the ER for evaluation. In the ER, patient received a total of 12 mg of morphine to help with his chest pain. Patient had a Heimlich valve and was admitted to the floor for further evaluation. Patient has remained hemodynamically stable throughout the procedure and hospital course. On my evaluation this morning, patient was found with the chest tube dislodged from the chest. Patient had reported complete resolution of chest pain and shortness of breath and was asking if it was okay for him to go home. Patient denied any hemoptysis, fever, chills, nausea, vomiting or diaphoresis. Patient is never had any pneumothorax previously or pleural effusion. Patient states the biopsy was like getting hit in the chest with a baseball bat. She does not see the centrifugal separator at baseline. Patient does not use any inhalers at baseline. Patient is unaware of any pulmonary function test, but does smoke on a daily basis. Review of systems otherwise negative from a constitutional, HEENT, respiratory, cardiovascular, GI, genitourinary, musculoskeletal, skin, neurologic, psychiatric and hematologic system unless stated above. Past Medical History Past Medical History (Chronic Problems): Chronic Problems Tobacco dependence syndrome (Chronic) PVD (peripheral vascular disease) (Chronic) HTN (hypertension) (Chronic) BPH (benign prostatic hyperplasia) (Chronic) Allergies ciprofloxacin Allergy (Verified 01/23/19 11:27) Hives Home Medications: Ambulatory Orders Medication Instructions Recorded Cilostazol 100 mg PO BID 04/01/18 Enalapril Maleate [Vasotec] 5 mg PO DAILY 04/01/18 Omeprazole 40 mg PO DAILY 04/01/18 Oxybutynin Chloride [Oxybutynin 30 mg PO DAILY 04/01/18 Chloride ER] Simvastatin 20 mg PO DAILY 04/01/18 traMADol [Ultram] 50 mg PO BID PRN PRN 04/01/18 Acetaminophen [Tylenol Extra 500 mg PO BID PRN 01/23/19 Strength] Alfuzosin HCl [Alfuzosin HCl ER] 10 mg PO DAILY 01/23/19 Aspirin [Aspirin, Baby] 81 mg PO DAILY@0800 01/23/19 Folic Acid 2 mg PO DAILY 01/23/19 Meloxicam [Mobic] 15 mg PO DAILY 01/23/19 Methotrexate Sodium [Methotrexate] 15 mg PO SA 01/23/19 Multivit-Min/FA/Lycopen/Lutein 1 tab PO DAILY 01/23/19 [Centrum Silver Men Tablet] leucovorin tablet 25 mg PO WOO 01/23/19 Smoking Status: Current every day smoker Tobacco Use: Cigarettes - *Family History Maternal History Items: - - No cancer Patient Problems: Active and Suspected Problems Pneumothorax after biopsy (Acute) Objective: Chest x-ray was personally reviewed with radiology. No residual pneumothorax is appreciated following dislodgment of the chest tube. Initial chest x-ray was reviewed and showed proper placement of the Pneumovac - Physical Exam Vitals/I&O's: Vital Signs Temp Pulse Resp BP Pulse Ox 36.9 C 73 16 104/59 L 97 01/24/19 08:20 01/24/19 08:20 01/24/19 08:20 01/24/19 08:20 01/24/19 08:20 Oxygen Flow Rate (L/min) 2 Oxygen Delivery Method Room Air Weight: 68.855 kg Body Mass Index (BMI) 21.4 Intake and Output for Last 24 Hours 01/22/19 01/23/19 01/24/19 23:59 23:59 23:59 Intake Total 240 / 740 1300 / 1300 Balance 240 / 740 1300 / 1300 General: Alert, Oriented x3, Cooperative, Well developed, Well nourished, - - No conversational dyspnea HEENT: Atraumatic, PERRLA, EOMI, Normocephalic Oral: Moist Mucosa, No Gingival or Mucosal Lesions/ Ulcerations Neck: Supple, No JVD, Negative Carotid Bruits Lungs: Clear to auscultation, No rhonchi, No wheeze, No rales, Diminished Cardiovascular: Regular rate, Regular Rhythm, Normal S1, Normal S2, No murmurs Abdomen: Bowel Sounds Present, Soft, Non Tender Extremities: No cyanosis, No edema, Capillary Refill Less than 3 Seconds, Clubbing - Stage I Skin: No rashes, No breakdown Musculoskeletal: No Tenderness to Palpation of Joints or Extremities Lymphatic: No Cervical, Supraclavicular, or Inguinal Adenopathy Neurological: Cranial nerves II-XII grossly intact, Neuro grossly intact, Motor Exam 5/5 strength throughout Psych/Mental Status: Alert and oriented to time, place, person, mood and affect Current Medications Acetaminophen (Tylenol) 650 mg PO Q6H PRN PRN PRN Reason: Pain Score 1-3/Temp > 100.7 F Albuterol Sulfate (Ventolin Aerosols) 2.5 mg INHALATION Q2H PRN PRN PRN Reason: Shortness of Breath/Wheezing Aspirin (Aspirin, Baby) 81 mg PO DAILY@0800 [facility] Last Admin: 01/24/19 08:26 Dose: 81 mg Documented by: Atorvastatin Calcium (Lipitor) 10 mg PO QHS [facility] Last Admin: 01/23/19 20:58 Dose: 10 mg Documented by: Cilostazol (Pletal) 100 mg PO BIDAC [facility] Last Admin: 01/24/19 08:20 Dose: 100 mg Documented by: Dextrose (D50w Syringe) 0 gm IV X1 PRN; Protocol PRN Reason: Hypoglycemia Folic Acid (Folic Acid) 2 mg PO DAILYCM [facility] Last Admin: 01/24/19 08:26 Dose: 2 mg Documented by: Glucagon () 1 mg IM .X1 PRN PRN Reason: Hypoglycemia Leucovorin Calcium () 25 mg PO WOO [facility] Lisinopril (Zestril) 5 mg PO DAILY [facility] Last Admin: 01/24/19 08:26 Dose: 5 mg Documented by: Melatonin (Melatonin) 3 mg PO QHS PRN PRN PRN Reason: INSOMNIA Meloxicam (Mobic) 15 mg PO DAILY [facility] Last Admin: 01/24/19 08:21 Dose: 15 mg Documented by: Methotrexate (Methotrexate) 15 mg PO SA [facility] Morphine Sulfate () 2 mg IV Q3H PRN PRN PRN Reason: breakthrough pain Multivitamins/Minerals (Multivitamin With Minerals) 1 tablet PO DAILY@0800 [facility] Last Admin: 01/24/19 08:21 Dose: 1 tablet Documented by: Ondansetron HCl (Zofran) 4 mg IV Q8H PRN PRN PRN Reason: NAUSEA/VOMITING Oxycodone HCl (Oxyir) 5 mg PO Q4H PRN PRN PRN Reason: Pain Score 4-5/10 Oxycodone HCl (Oxyir) 10 mg PO Q4H PRN PRN PRN Reason: Pain Score 6-10/10 Pantoprazole Sodium (Protonix) 40 mg PO DAILY [facility] Last Admin: 01/24/19 08:22 Dose: 40 mg Documented by: Senna/Docusate Sodium (Senokot-S, Megan-Colace) 2 tablet PO BID PRN PRN PRN Reason: Constipation Tamsulosin HCl (Flomax) 0.4 mg PO DAILY@1730 [facility] Last Admin: 01/23/19 18:29 Dose: 0.4 mg Documented by: Tolterodine Tartrate (Detrol La) 4 mg PO DAILY [facility] Last Admin: 01/24/19 08:22 Dose: 4 mg Documented by: Clinical Impression(s) from Imaging Studies Chest X-Ray 01/23/19 13:53 IMPRESSION: Status post placement of a small-caliber right-sided chest tube with mild residual right apical pneumothorax. Small amount of right subcutaneous emphysema. Electronically Signed: Anthony Rubin, at 14:24 EDT , Service support , Assessment/Plan All Active Problems Pneumothorax after biopsy (Acute) RECOMMENDATIONS: 1. Supportive measures 2. No need to follow-up from a pulmonary perspective 3. Office number given and patient will call with any complications 4. Okay to discharge from a pulmonary perspective IMPRESSIONS: 1. Iatrogenic pneumothorax following CT-guided biopsy On my evaluation, chest tube was already dislodged. Follow-up chest x-ray shows complete resolution of pneumothorax. Signs and symptoms of recurrence were reviewed with the patient. Patient is not reporting any dyspnea or other complications at this time. Likely will not benefit from continued hospitalization. Patient can follow-up with oncology as an outpatient. Did discuss with the patient the signs and symptoms of recurrence and office number was given so that he can call if any of these occur. Patient understands that if there is any difficulty with cyanosis or chest pain, patient can present to the ER for evaluation. Replacement of the chest tube is not indicated at this time. Defer to Dr. Marroquin to follow-up with outpatient biopsy results. Code Visit Inpatient E&M: 27577 Init Hosp L2
== END 2019-01-24 12:10 | disposition home or self-care (01) ==
LOC: ED 11:58 → MS3 15:56
PROVIDERS: Emergency Provider Emergency Medicine; Family Provider Internal Medicine; PCP Internal Medicine; Visit Provider Family Medicine
DX: J95.811 Postprocedural pneumothorax (principal); I73.9 Peripheral vascular disease, unspecified; R89.7 Abnormal histological findings in specimens from other organs, systems and tissues; R06.00 Dyspnea, unspecified; I10 Essential (primary) hypertension; N40.0 Benign prostatic hyperplasia without lower urinary tract symptoms; F17.210 Nicotine dependence, cigarettes, uncomplicated; E78.00 Pure hypercholesterolemia, unspecified; J44.9 Chronic obstructive pulmonary disease, unspecified; Z79.899 Other long term (current) drug therapy; Z79.82 Long term (current) use of aspirin
CPT/HCPCS: 32405; 32551; 36415; 71045; 71046; 77012; 85027; 85610; 88172; 88305; 88313; 88341; 88342; 96374; 96375; 99156; 99157; 99218; 99282; J7040; A4216; G0378; J2405

== ENCOUNTER 2019-02-09 11:19 | Day surgery (SDC) | payer MEDICARE, SELFPAY ==
[2019-02-05 11:27] VITALS: BMI 22.2
--- NOTE | 2019-02-08 19:18 | PCM.HP.BLA ---
History and Physical Date of Admission: 02/09/19 Jarocho Hunt 1935 ? ? REFERRING PHYSICIAN: Nohemi Beth MD ? CHIEF COMPLAINT: Consult (Port consult) ? HPI: The patient is a 83 year old male is referred for consideration of port placement. He has diagnosis of metastatic lung cancer and will require IV chemotherapy. He has exhausted IV access. Has had rib fractures in the past, denies history of clavicular fractures. Denies history of DVT or PE. Denies previous central line placements ? ? PAST MEDICAL HISTORY ? Adjustment disorder with anxiety 10/27/2015 ? Benign hypertensive heart disease without heart failure 10/2000 ? BPH NOS w ur obs/LUTS 06/01/2010 ? Carpal tunnel syndrome 04/23/2008 ? Bilateral surgery done about age 49 ? 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 Coronary artery disease ? ? Diaphragmatic hernia without mention of obstruction or gangrene ? ? Displacement of cervical intervertebral disc without myelopathy ? ? L2-L3 ? Diverticulosis of colon (without mention of hemorrhage) ? ? Esophagitis, unspecified ? ? Generalized osteoarthrosis 05/27/2009 ? Hydrocele 12/08/2012 ? HYPERTENSION NOS ? ? 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 Dr. Choi ? 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 Muscle weakness (generalized) 07/08/06 ? Muscle Weakness/pain ? Nerve disorder ? ? foot ? Neuropathy (HCC) 12/04/2010 ? Other and unspecified hyperlipidemia 10/2000 ? PERIPH VASCULAR DIS NOS 11/04/2005 ? Sciatica ? ? Shortness of breath 05/24/2006 ? 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 Tobacco use disorder ? ? PAST SURGICAL HISTORY ? CAPSULE ENDOSCOPY SMALL BOWEL ? 02/06/2014 ? COLONOSCOP W/ OR W/O BRSH SPEC ? 02/21/2001 ? Colonoscopy ? COLONOSCOP W/ OR W/O BRSH SPEC ? 01/03/14 ? Colonoscopy ? COLONOSCOPY W/BX ? 02/04/11 ? CYSTO.PANENDO ? 07/29/2011 ? Cystoscopy ? EGD W/O BRSH SPECIMEN W/BX ? 02/04/11 ? EGD W/O OR W/BRUSH/WASH ? 01/03/14 ? EGD W/O OR W/BRUSH/WASH ? 08/08/2017 ? EGD ? ORCHIECTOMY SIMPLE ? 05/09/2013 ? Hydrocelectomy,orchiectomy ? PAST SURGICAL HISTORY OF ? ? ? yuliet cataracts removed ? PAST SURGICAL HISTORY OF ? 06/2018 ? Right eye surgery ? REVISE MEDIAN N/CARPAL TUNNEL SURG ? 1980s ? Carpal tunnel decomp ? ? MEDICATIONS: ondansetron (ZOFRAN) 8 mg tablet, Take 1 tablet by mouth every 8 hours as needed. atorvastatin (LIPITOR) 10 mg tablet, Take 10 mg by mouth once daily. LEUCOVORIN CALCIUM ORAL, Take 25 mg by mouth. Take 1 tablet weekly. COMPOUNDED PRESCRIPTION, CT directed needle aspiration biopsy of PET positive lung nodule, right or left, radiologist's discretion. alfuzosin SR (UROXATRAL) 10 mg 24 hr tablet, Take 1 tablet by mouth once daily. traMADol (ULTRAM) 50 mg tablet, Take 1-2 tablets by mouth twice daily as needed for Pain (feet pain) for up to 283 days. methotrexate 2.5 mg tablet, Take 5 tablets by mouth per week (Patient taking differently: Take 6 tablets by mouth once weekly. cilostazol (PLETAL) 50 mg tablet, Take 2 tablets by mouth twice daily. simvastatin (ZOCOR) 20 mg tablet, Take 1 tablet by mouth daily at bedtime. leucovorin (LEUCOVORIN) 15 mg tablet, Take 25 mg by mouth one time a week. aspirin 81 mg chewable tablet, Take 1 tablet by mouth once daily. enalapril (VASOTEC) 5 mg tablet, Take 1 tablet by mouth once daily. oxybutynin ER (DITROPAN XL) 15 mg 24 hr Extended Rel Tab, Take 2 tablets by mouth once daily. meloxicam (MOBIC) 15 mg tablet, Take 1 tablet by mouth once daily as needed (arthritis pain). With food. Omeprazole 40 mg capsule, Take 1 capsule by mouth once daily. acetaminophen (TYLENOL EXTRA STRENGTH) 500 mg tablet, Take 500 mg by mouth every 6 hours as needed. folic acid/multivit-min/lutein (CENTRUM SILVER ORAL), Take 1 tablet by mouth once daily. ? ? ALLERGIES: Ciprofloxacin ? PERSONAL HISTORY: Social History ?Tobacco Use ? Smoking status: Current Every Day Smoker ? ? Packs/day: 1.00 ? ? Years: 69.00 ? ? Pack years: 69.00 ? ? Types: Cigarettes ? ? Start date: [birth year]/1949 ? Smokeless tobacco: Never Used ? Tobacco comment: Father smoked in childhood home. Spouse quit smoking 50 years ago. Substance Use Topics ? Alcohol use: Yes ? ? Comment: socially/infrequently ? Drug use: No ? FAMILY HISTORY ? Cancer Mother ? Breast cancer, met to Lung ? other (rheumatic fever) Father ? ? other (no siblings) Father ? ? No Known Problems Son ? ? No Known Problems Son ? ? ? REVIEW OF SYSTEMS: CONSTITUTIONAL: ?No fevers, chills, nightsweats, unintended weight loss HEENT: ?Denies frequent or severe heaches, nasal congestion/sinus symptoms, problematic allergy problems. EYES: ?No diplopia or blurry vision. CARDIOVASCULAR: ?No chest pain, dyspnea, palpitations, orthopnea, PND, ankle edema. PULM: ?No dyspnea, unexplained cough. GI: ?No dysphagia/odynophagia, problematic reflux, constipation, diarrhea, changes in stool habits, hematochezia, melena. : ?No new urinary complaints, including dysuria, gross hematuria or pyuria. NEURO: ?No new balance problems, peripheral weakness/paresthesias or numbness of concern. MUSC-SKEL: ?No new joint pain, swelling, or erythema. PSY: ?No concerns regarding depression, anxiety or panic. INTEGUMENTARY: ?No new skin changes (rash, new or changing mole, new growth) ? PHYSICAL EXAMINATION: General: The patient is 83 year old male, well nourished, well hydrated in no acute distress. The patient is oriented to time, place, and person. VITALS: BP 88/53 Pulse 89 Temp 98.3F Ht 5' 8 Wt 156 lb BMI 23.? Head ? Normocephalic. EOM intact with sclera clear and no icterus noted. Mouth with mucus membranes moist. Neck - supple with no jugular venous distention noted. Trachea is midline. No carotid bruits noted. Lungs ? clear to auscultation. Normal breath sounds. No rales/rhonchi/wheezing noted. No labored breathing noted, such as retractions. No cough heard. Heart ? normal S1 and S2 auscultated. No rubs/clicks/murmurs noted. Regular rate. Abdomen ? soft and benign. Normal bowel sounds Extremities ? no calf tenderness noted. No pitting edema noted. Skin ? normal skin integrity. Neurological ? gait normal, no focal deficits noted Psych ? calm and appropriate ? ? IMPRESSION: exhausted vascular access, need for IV chemotherapy ? PLAN: I have discussed the above with the patient. I have offered placement of portacath I have explained the procedure to the patient. I have counseled the patient as to the risks of the procedure, including but not limited to: infection, bleeding, injury to any blood vessels/nerves, scar tissue, injury to the lungs such as hemothorax or pneumothorax and their sequelae, thrombosis of catheter, infection of catheter, non functioning of catheter, wound infections, complications of anesthesia, etc. ? the patient understands. The patient wishes to proceed. I have answered all questions to the patient?s satisfaction and the patient has no further questions. ? . 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
[2019-02-09] VITALS (7 sets, daily range): BP systolic 133–155; BP diastolic 72–90; PULSE 73–85; RESP 16–18; TEMP 36.6–37.4; O2SAT 97–99; BMI 23.7
[2019-02-09] MEDS: Lactated Ringers 1,000 ML 75 ML IV (13:00)
[2019-02-09] MEDS: Cefazolin 2 GM in 0.9% Normal Saline 100 ML IV (13:12)
--- NOTE | 2019-02-09 14:10 | OP.PCM_ITS ---
Report of Operation Date of Procedure: 02/09/19 Pre-Operative Diagnosis: metastatic lung cancer, need for IV access for ch emotherapy Post-Operative Diagnosis: same as above Surgery/Procedure Performed:: placement of permanent indwelling tunnelled catheter in right subclavian vein with subcutaneous port Description of Surgical Findings:: normal right IJ anatomy to SVC Type of Anesthesia:: Local MAC Anesthesiologist: John Meyer Specimen's removed: none Estimated Blood Loss (mL): < 10 ml Fluids Replaced: see anesthesia note Description of Procedure: After informed consent was given, the patient was brought to the Operating Room . Appropriate time out protocol was followed. He was placed in the supine position. He was then given IV conscious sedation for anesthesia. The patient?s upper chest and neck were then prepped with a surgical skin preparation and sterile surgical drapes were placed. After proper landmarks were ascertained, the skin at the upper right chest and neck area was then infiltrated with 1% xylocaine with epinephrine. The ultrasound transducer was brought into the operative field via a sterile sheath and real time US imaging was done to locate the right internal jugular vein. Once this was identified, then a needle trocar was then inserted into the right internal jugular vein and there was good aspiration of venous blood. A wire was then threaded into the needle trocar and this was visualized under fluoroscopy to ensure that the wire was in the right internal jugular vein and directed into the SVC. Once this was done, then the needle trocar was removed. A small skin erika was made with an 11 blade knife at the wire entrance site. The dilator with the introducer sheath attached was then placed over the wire into the right internal jugular vein via the Seldinger technique and this was visualized under fluoroscopy. The dilator and sheath were in proper position as visualized by fluoroscopy. The wire and dilator were then removed. The catheter was then threaded into the introducer sheath and was positioned with its tip at the junction of the superior vena cava and the right atrium as visualized under fluoroscopy. The catheter was flushed with a heparin saline mixture prior to placement. A subcutaneous pocket was then created caudad to the catheter insertion site. A transverse skin incision was made after the skin and subcutaneous tissues were infiltrated with local anesthetic. Blunt dissection was then used to create a space large enough for placement of the subcutaneous port. Hemostasis was carefully controlled with electrocautery. The port was sutured to the subcutaneous fascia using vicryl suture at three sites. The catheter was then tunneled into the subcutaneous pocket. The excess catheter was transected. The catheter was then attached to the subcutaneous port using bankruptcy paralegal?s guidelines. The port was then placed in the subcutaneous pocket and the sutures were ligated. The subdermal incisional sites were reapproximated with interrupted vicryl suture. The skin was reapproximated with monocryl suture in a subcuticular fashion. Cavilon and steristrips were used for reinforcement of the skin closure and a sterile opsite dressing was applied. THe patient was brought to the Recovery Room in stable condition.. - Complications none noted - Admit VTE Documentation VTE Present on Admission: Yes VTE Mechan Device Prophylaxis: SCD's
--- NOTE | 2019-02-09 14:11 | RAD_ITS ---
STUDY: X-RAY CHEST REASON FOR EXAM: Male, 83 years old. Port placement. TECHNIQUE: Single AP portable view of the chest. COMPARISON: Comparison is made with prior examination dated January 24, 2019. FINDINGS: A right-sided portacatheter has been placed. The tip is seen in the proximal portion of the superior vena cava. The lungs are clear and expanded. There is no demonstrated pleural abnormality. Normal size heart. Normal mediastinum and beau. Normal visualized pulmonary arteries. There is atherosclerotic calcification of the aortic arch with tortuosity. There are diffuse degenerative changes of the visualized thoracic spine. Dextroscoliosis of the upper thoracic spine. Normal visualized ribs, clavicles, and shoulders. There is no demonstrated abnormality of the visualized soft tissue structures of the upper abdomen. RAD/CXR for Line Placement IMPRESSION: The tip of the right portacatheter is in the proximal portion of the superior vena cava. Electronically Signed: Anthony Rubin, at 15:05 EST , Service support ,
--- NOTE | 2019-02-09 14:21 | DCINST_ITS ---
Discharge Diet: No Restrictions Discharge Activity: Return to Normal Activity, May not drive while taking narcotic pain medications. Call your doctor if your incision/area has: Continuous Slow Oozing, Foul Smelling Discharge Additional Dressing/Incision Instructions:: Leave dressing in place. May get wet in shower. Do not soak - no tub baths/swimming. May apply ice packs to area for comfort Allergies/Adverse Reactions: Allergies ciprofloxacin Allergy (Verified 02/09/19 12:05) Hives Medications to take at Discharge Cilostazol 100 mg PO BID 04/01/18 Enalapril Maleate [Vasotec] 5 mg PO DAILY 04/01/18 Omeprazole 40 mg PO DAILY 04/01/18 Oxybutynin Chloride [Oxybutynin Chloride ER] 30 mg PO DAILY 04/01/18 Simvastatin 20 mg PO DAILY 04/01/18 traMADol [Ultram] 50 mg PO BID PRN PRN 04/01/18 Acetaminophen [Tylenol Extra Strength] 500 mg PO BID PRN 01/23/19 Alfuzosin HCl [Alfuzosin HCl ER] 10 mg PO DAILY 01/23/19 Aspirin [Aspirin, Baby] 81 mg PO DAILY@0800 01/23/19 Folic Acid 2 mg PO DAILY 01/23/19 Meloxicam [Mobic] 15 mg PO DAILY 01/23/19 Methotrexate Sodium [Methotrexate] 15 mg PO SA 01/23/19 Multivit-Min/FA/Lycopen/Lutein [Centrum Silver Men Tablet] 1 tab PO DAILY 01/23/19 leucovorin tablet 25 mg PO WOO 01/23/19 Hydrocodone Bitart/Apap 5-325 [[place] 5MG-325MG] 1 tablet PO Q8H PRN PRN 5 Days #15 tablet 02/09/19 The following prescriptions were given: Hydrocodone Bitart/Apap 5-325 [[place] 5MG-325MG] 1 tablet PO Q8H PRN PRN 5 Days #15 tablet PRN Reason: Pain Transmission Status: Received by [id number] Primary Care Physician: Lavelle Nolasco MD [Primary Care Provider] - Test Results: Test results from this visit will be discussed in further detail at your follow- up appointment, if applicable. Please Follow Up With: Annemarie Kwon MD - call When: as per needed
== END 2019-02-09 15:15 | disposition home or self-care (01) ==
LOC: SDC 11:22 → AC 11:28
PROVIDERS: Family Provider Internal Medicine; PCP Internal Medicine; Referring Provider Surgery; Visit Provider Surgery
PROC: (CPT 36561; principal; 2019-02-09 12:45)
DX: Z45.2 Encounter for adjustment and management of vascular access device (principal); C34.91 Malignant neoplasm of unspecified part of right bronchus or lung; C78.02 Secondary malignant neoplasm of left lung; I11.9 Hypertensive heart disease without heart failure; I25.10 Atherosclerotic heart disease of native coronary artery without angina pectoris; J44.9 Chronic obstructive pulmonary disease, unspecified; M15.9 Polyosteoarthritis, unspecified; M06.4 Inflammatory polyarthropathy; E78.5 Hyperlipidemia, unspecified; F43.22 Adjustment disorder with anxiety; F17.210 Nicotine dependence, cigarettes, uncomplicated; Z79.82 Long term (current) use of aspirin; Z79.1 Long term (current) use of non-steroidal anti-inflammatories (NSAID); Z79.899 Other long term (current) drug therapy
CPT/HCPCS: 00532; 36561; 71045; 77001; J7120; C1788

== ENCOUNTER → 2019-05-07 10:12 | Outpatient (CLI) | payer MEDICARE, SELFPAY ==
[2019-02-09 12:01] VITALS: BMI 23.7
--- NOTE | 2019-05-07 10:30 | PET_ITS ---
EXAMINATION: FDG PET-CT INDICATIONS: An 83-year-old male with history of carcinoma of the lung presenting for restaging examination. COMPARISON EXAMINATION: CT of the chest report dated 03/26/2019, prior FDG PET study dated 01/08/2019 INDEX LESION SIZE SUV INTERPRETATION PERSISTENT: left upper lateral lung-left upper lobe 11.6-mm (frame 198) comp. to 14.1-mm (01/08/19) 2.4 comp. to 3.1 (01/08/19) Fulfills borderline quantitative criteria for viable neoplasm, interim metabolic improvement-near complete quantitative metabolic response PREVIOUS: right anterior lung-right upper lobe Demonstrates metabolic resolution-quantitative complete metabolic response TECHNIQUE: Following the intravenous administration of 13.9 mCi of F-18 deoxyglucose via the left antecubital fossa, multiplanar image acquisitions of the neck, chest, abdomen and pelvis to level of mid thigh, obtained at one hour post radiopharmaceutical administration contemporaneously interpreted with the current CT of the neck, chest, abdomen and pelvis, to level of mid thigh, dated 05/07/[address] of the chest report dated 03/26/2019, prior FDG PET study dated 01/08/2019 reveals: BLOOD GLUCOSE LEVEL:?? 91 mg/dl?HEIGHT:?70 inches?WEIGHT: 160 lbs. FINDINGS: 1. Redefined increased glucose metabolism is manifest in the left upper anterior lung-left upper lobe generating a current calculated maximal standard uptake value of 2.4, compared to 3.1 defined on the FDG PET study dated 01/08/2019. Borderline quantitative criteria for viable neoplasm are fulfilled. The maximal axial diameter of the persistently defined parenchymal density on review of CT of the chest dated 05/07/2019 is 11.6-mm (transverse). 2. Normal physiologic distribution of the radiopharmaceutical is apparent in the hepatic (2.3/2.5) and splenic parenchyma, both renal units, bladder and visualized intestinal tract. The visualized portion of the cerebral cortex demonstrate symmetric and preserved glucose metabolism. Diffuse radiopharmaceutical concentration is noted in all four quadrants of the abdomen and pelvis. There is homogenous enhanced glucose concentration evidenced in the visualized appendicular and axial skeletal structures. Prominent radiopharmaceutical concentration is defined in the anterior aspect of the oral cavity in proximity to dental hardware placement consistent with a component of metallic reconstruction artifact. (Baron, et al, AJR 179:1337, 2002). The previously identified right mid anterior lung-right upper lobe hypermetabolic focus noted on the FDG PET study dated 01/08/2019 is not apparent on the current examination. PET/PET/CT Tumor Base -Thigh Subs IMPRESSION: 1. Increased glucose concentration redefined in the left upper lateral lung-left upper lobe fulfills borderline quantitative criteria for viable neoplasm. 2. There is interim metabolic resolution of the prior defined right mid anterior lung-right upper lobe hypermetabolic focus. 3. Homogeneous increased radiopharmaceutical concentration noted in the visualized appendicular and axial skeletal structures is commensurate with the hematopoietic response to chemotherapeutic intervention. (Pedro et al, Journal of Clinical Oncology 16:173, 1998). 4. Overall, compared to the prior FDG PET study dated 01/08/2019, the persistently defined left upper lobe hypermetabolic focus fulfills borderline quantitative criteria for viable neoplasm on the current examination commensurate with a near complete quantitative metabolic response. There is an interval quantitative complete metabolic response relating to the prior defined right lung hypermetabolic focus. Electronic Signature Modesto Verdugo D.O. Electronically Signed: Modesto Verdugo DO at 17:17 EST Tel , Service support ,
== END ==
PROVIDERS: PCP Internal Medicine; Referring Provider Internal Medicine Hematology & Oncology; Visit Provider Internal Medicine Hematology & Oncology
DX: C34.12 Malignant neoplasm of upper lobe, left bronchus or lung (principal)
CPT/HCPCS: 78815; A9552

== ENCOUNTER → 2019-08-08 14:02 | Outpatient (CLI) | payer MEDICARE, SELFPAY ==
[2019-02-09 12:01] VITALS: BMI 23.7
== END ==
PROVIDERS: PCP Internal Medicine; Referring Provider Internal Medicine Hematology & Oncology; Visit Provider Internal Medicine Hematology & Oncology
DX: R53.81 Other malaise (principal); R53.83 Other fatigue; R55 Syncope and collapse
CPT/HCPCS: 84484

== ENCOUNTER 2019-08-21 12:57 | Observation (INO) | payer MEDICARE, SELFPAY ==
[2019-02-09 12:01] VITALS: BMI 23.7
[2019-08-21] VITALS (13 sets, daily range): BP systolic 90–152; BP diastolic 41–65; PULSE 71–91; RESP 13–27; TEMP 36.1–36.9; O2SAT 94–98; BMI 22.5; BMI 21.1
--- NOTE | 2019-08-21 13:21 | EKG12_ITS ---
Test Reason : Blood Pressure : / mmHG Vent. Rate : 076 BPM Atrial Rate : 076 BPM P-R Int : 176 ms QRS Dur : 076 ms QT Int : 388 ms P-R-T Axes : 010 004 065 degrees QTc Int : 436 ms Normal sinus rhythm with sinus arrhythmia Normal ECG Confirmed by MEENU VASQUEZ ([id number]), supervising editor trailer LOLI RIGGS ([id number]) on 08/23/2019 2:17:22 PM Referred By: Confirmed By:MEENU VASQUEZ
--- NOTE | 2019-08-21 13:22 | CT_ITS ---
STUDY: CTA CHEST REASON FOR EXAM: Male, 83 years old. LUNG CANCER, COUGH, SOB, COPD, SYNCOPAL EPISODES, ELEVATED WBC RADIATION DOSAGE (If Supplied By Facility): CTDIvol = ( 6.80 ) mGy, DLP = ( 317.21 ) mGycm TECHNIQUE: The examination was performed with the intravenous administration of IV 75mL Isovue-370. Post-processing of the angiographic images was performed, with multiplanar reformation and 3D reconstruction. Individualized dose optimization techniques were used for this CT. COMPARISON: Comparison is made with prior study dated December 21, 2018. FINDINGS: A right-sided portacatheter is seen with the tip in the superior vena cava. Normal enhancement of the main pulmonary artery and right and left pulmonary arteries. Normal enhancement of the bilateral peripheral pulmonary arteries. There is no demonstrated pulmonary embolism. There is atherosclerotic calcification of the aortic arch with tortuosity. Small amount of mural thrombus is seen in the descending thoracic aorta. There is no demonstrated aortic dissection. Small pericardial effusion. There are visualized mediastinal lymph nodes, which are within normal size limits, and with normal morphology. Normal hilar regions. Normal visualized trachea and bronchi. Hyperinflation. Mild degree of emphysematous changes. There is a 1.1 cm spiculated nodule in the midportion of the left upper lobe. This is essentially unchanged. Normal pleura. Normal chest wall structures. There are degenerative changes of thoracic spine. The gallbladder is distended. Fluid distention of the stomach. Moderate sized hiatal hernia. CT/CTA Chest W/WO Contrast IMPRESSION: Stable 1.1 cm nodule in the midportion of the left upper lobe. No evidence of the pulmonary embolism. 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 Moderate sized hiatal hernia with air-fluid level in the esophagus. Fluid distention of the stomach. Distended gallbladder. Electronically Signed: Anthony Rubin, at 14:51 EDT , Service support ,
--- NOTE | 2019-08-21 13:24 | ED.DCSUM_ITS ---
History of Present Illness Chief Complaint: Shortness of Breath Informant: Patient Onset: Weeks Narrative: Patient presents from Dr. Beth's office. He is concerned the patient may have pneumonia or a pulmonary embolism. Patient has a history of small cell lung cancer currently in remission. He is on immunotherapy last treatment 2 and half weeks ago. Patient has had chronic shortness of breath and weakness. He has been lightheaded with some syncopal episodes when standing. He denies chest pain or palpitations. Dr. Vallejo requested the patient get a CTA of the chest to rule out PE and evaluate for pneumonia as well as admitting for corticotropin test in the morning. - Past Medical History (1) Small cell lung cancer Status: Chronic (2) BPH (benign prostatic hyperplasia) Status: Chronic (3) HTN (hypertension) Status: Chronic (4) PVD (peripheral vascular disease) Status: Chronic (5) Tobacco dependence syndrome Status: Chronic Past Medical History - Allergies and Home Meds Allergies/Adverse Reactions: Allergies ciprofloxacin Allergy (Verified 02/09/19 12:05) Hives Primary Care Physician: Lavelle Nolasco MD [Primary Care Provider] - Doctors: Dr. Beth Prior records reviewed: Yes Lives: Spouse/ Significant Other Smoking Status: Current every day smoker - Family History Maternal Family History: Reports: - Review of Systems General: Denies: Chills, Fever Eyes: Denies: Visual changes - bilaterally ENT: Denies: Bilateral ear pain Cardiovascular: Denies: Chest pain, Palpitations Respiratory: Reports: Dyspnea, Cough, Sputum Gastrointestinal: Denies: Abdominal pain, Nausea, Vomiting, Diarrhea Musculoskeletal: Denies: Swelling, Extremity Pain Skin: Denies: Rash Neurological: Reports: Weakness - Generalized weakness. Denies: Headache Hematologic: Denies: Easy bruising, Easy bleeding Allergy: Denies: Uticaria Physical Exam Vital Signs/Narrative: Vital Signs Temp Pulse Resp BP Pulse Ox 08/21/19 13:14 85 25 H 100/64 96 08/21/19 12:59 97 F L 89 18 95/53 L 96 Inital Vital Signs reviewed: Yes General: Well nourished, Well developed Head: Normocephalic ENT: Moist mucous membranes Neck: Supple Cardiovascular: Regular rate, Regular rhythm Respiratory: No distress, CTA bilaterally Abdomen: Soft, Nontender Back: Nontender Extremities: Nontender, No edema Skin: Normal color Neurological: Alert, Oriented x3 Psychological: Normal affect Diagnostic/Tx/Re-eval Impressions Chest CTA 08/21/19 13:22 IMPRESSION: Stable 1.1 cm nodule in the midportion of the left upper lobe. No evidence of the pulmonary embolism. 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 Moderate sized hiatal hernia with air-fluid level in the esophagus. Fluid distention of the stomach. Distended gallbladder. Electronically Signed: Anthony Rubin, at 14:51 EDT , Service support , 08/21/19 13:22 CTA Chest W/WO Contrast [CT] Stat Laboratory Results 08/21/19 08/21/19 08/21/19 13:49 13:49 13:50 WBC 18.1 H RBC 3.39 L Hgb 10.8 L Hct 32.7 L MCV 96.5 H MCH 31.9 MCHC 33.0 RDW Std Deviation 42.1 RDW Coeff of Tiara 11.9 Plt Count 206 MPV 9.5 Immature Gran % (Auto) 0.900 Neut % (Auto) 87.9 H Lymph % (Auto) 5.5 L [place] % (Auto) 5.4 Eos % (Auto) 0.1 Baso % (Auto) 0.2 Absolute Neuts (auto) 15.9 H Absolute Lymphs (auto) 1.00 Nucleated RBC % 0 Sodium 132 L Potassium 3.1 L Chloride 99 Carbon Dioxide 25.0 Anion Gap 8 BUN 18 Creatinine 1.23 Estim Creat Clear Calc 42.45 Est GFR (MDRD) Af Amer 72 Est GFR (MDRD) Non-Af 60 BUN/Creatinine Ratio 14.6 Glucose 149 H Calcium 8.7 Total Bilirubin 0.90 Direct Bilirubin 0.32 H AST 13 L ALT 15 L Alkaline Phosphatase 51 Troponin I < 0.015 Total Protein 6.6 Albumin 3.0 L Globulin 3.6 COVID-19 ([place]) Cancelled - EKG Initial EKG Interpretation: Sinus Rhythm - Sinus at 76 with no acute ischemia. - Medical Decision Making CTA and lab work are grossly unremarkable. Dr. Beth has requested the patient be admitted for corticotropin test tomorrow secondary to his hypotension. Covid test is pending at this time will be signed out to oncoming physician. Once this is obtained patient be able to be admitted to the appropriate floor. Patient has been updated on current test results and our need to wait for Covid testing. ED Disposition - Plan for ED Patient: Disposition: Acute Care Hospital [facility] Diagnosis: Dyspnea, Hypotension, Syncope Referrals: Lavelle Nolasco MD [Primary Care Provider] -
[2019-08-21 13:55] LABS: Absolute Neutrophil Count 15.9 X10^3/uL (2.0-7.7); Basophil# 0.03 X10^3/uL; Basophil% 0.2 % (0-1); Eosinophil# 0.01 X10^3/uL; Eosinophils% 0.1 % (0-5); Hematocrit 32.7 % (40-54); Hemoglobin 10.8 g/dL (13.0-16.5); Lymphocyte % 5.5 % (19-41); Mean Corpuscular Hgb 31.9 pg (27.0-32.0); Mean Corpuscular Volume 96.5 fL (80-94); Mean Platelet Vol. 9.5 fl (6.2-12.0); Monocyte# 0.97 X10^3/uL; Monocyte% 5.4 % (0-10); NRBC Flagged by Analyzer 0 % (0-5); Neutrophil # 15.88 X10^3/uL (2.7-7.7); Neutrophil % 87.9 % (47-70); Platelet Count 206 K/mm3 (150-450); RBC Distribution Width CV 11.9 % (11.6-14.6); RBC Distribution Width SD 42.1 fl (35.1-43.9); Red Blood Count 3.39 M/mm3 (4.6-6.2); White Blood Count 18.1 K/mm3 (4.4-11.0)
[2019-08-21 14:15] LABS: AST(SGOT) 13 U/L (15-37); Alanine Aminotransfer ALT/SGPT 15 U/L (16-61); Alkaline Phosphatase 51 U/L (45-117); Anion Gap 8 (5-15); BUN 18 mg/dL (7-18); BUN/Creat Ratio 14.6 RATIO (10-20); Bilirubin, Direct 0.32 mg/dL (0.00-0.30); Calcium,Total 8.7 mg/dL (8.5-10.1); Chloride 99 mmol/L (98-107); Creatinine, Serum 1.23 mg/dL (0.70-1.30); EST Glomerular Filtration Rate 60 mL/min (>60); Est Glom Filt Rate - Afr Amer 72 mL/min (>60); Estimated Creatinine Clearance 42.45 ml/min; Globulin 3.6 g/dL (2.2-4.2); Glucose 149 mg/dL (74-106); Potassium 3.1 mmol/L (3.5-5.1); Protein, Total 6.6 g/dL (6.4-8.2); Sodium Level 132 mmol/L (136-145)
[2019-08-21] MEDS: 0.9% Normal Saline 1,000 ML 150 ML IV (18:58)
--- NOTE | 2019-08-21 19:29 | HP.PCM_ITS ---
Problem List (1) Intermittent hypotension Status: Acute (2) Near syncope Status: Acute (3) Small cell lung cancer Status: Chronic (4) Tobacco dependence syndrome Status: Chronic (5) PVD (peripheral vascular disease) Status: Chronic (6) HTN (hypertension) Status: Chronic Qualifiers: Hypertension type: essential hypertension Qualified Code(s): I10 - Essential (primary) hypertension (7) BPH (benign prostatic hyperplasia) Status: Chronic History of Present Illness Date of Admission: 08/21/19 Chief Complaint: Dizziness, shortness of breath. The patient is a 83 year old M with past medical history as mentioned above was referred to the emergency department by Dr. Beth, his oncologist because he was concerned about pneumonia or pulmonary embolism. The patient stated that yesterday, he stood up, felt dizzy and lightheaded and he fell on his right side including his right face. He stated that he did not lose his consciousness but he was really dizzy and lightheaded. He denied any associated chest pain, shortness of breath, palpitation or loss of consciousness. He mentioned over the last couple days, he has been feeling very weak, tired and intermittently short of breath. He denied cough or sputum production. He denied fever or chills. He denied vision change, slurred speech, focal arm or leg weakness. He had a history of small cell lung cancer, has been on chemotherapy and radiation and currently in remission. He had a history of peripheral vascular disease without prior interventions and has been on cilostazol. He had a history of COPD and chronic respiratory failure and he has been on oxygen at home at 2 L mainly at night. Dr. Beth requested that patient should receive ACTH stimulation test to rule out adrenal insufficiency. In the emergency department, patient was afebrile, blood pressure was significantly fluctuating, systolic goes anywhere from 90s up to 150s, was not tachycardic. His pulse oximeter has been also fluctuating and when I was speaking to the patient, his pulse ox came down to 78% while talking on room air but improved shortly after up to 95% on room air as well. His routine blood work was remarkable for leukocytosis, hemoglobin of 10.8 g/dL, sodium of 132, potassium was 3.1. LFT was unremarkable. EKG revealed normal sinus rhythm without evidence of acute, changes. Troponin was n egative. Testing for COVID-19 came back negative. CTA of the head and neck revealed 1.1 cm nodule in the midportion of the left lung which is due to the history of lung cancer, no PE, small amount of mural thrombus in the descending thoracic aorta, small pericardial effusion. Patient is being admitted for near syncope, intermittent symptomatic hypotension, mild hyponatremia and mild hypokalemia. Past Medical History Past Medical History (Chronic Problems): Chronic Problems Small cell lung cancer (Chronic) Tobacco dependence syndrome (Chronic) PVD (peripheral vascular disease) (Chronic) HTN (hypertension) (Chronic) BPH (benign prostatic hyperplasia) (Chronic) Allergies ciprofloxacin Allergy (Verified 02/09/19 12:05) Hives Home Medications: Ambulatory Orders Medication Instructions Recorded Cilostazol 100 mg PO BID 04/01/18 Omeprazole 40 mg PO DAILY 04/01/18 Oxybutynin Chloride [Oxybutynin 30 mg PO DAILY 04/01/18 Chloride ER] Simvastatin 20 mg PO DAILY 04/01/18 traMADol [Ultram] 50 mg PO BID PRN PRN 04/01/18 Acetaminophen [Tylenol Extra 500 mg PO BID PRN 01/23/19 Strength] Alfuzosin HCl [Alfuzosin HCl ER] 10 mg PO DAILY 01/23/19 Aspirin [Aspirin, Baby] 81 mg PO DAILY@0800 01/23/19 Multivit-Min/FA/Lycopen/Lutein 1 tab PO DAILY 01/23/19 [Centrum Silver Men Tablet] Mometasone Furoate [Asmanex Hfa] 1 puff INHALATION BID 08/21/19 Tiotropium [place] [Spiriva 18 MCG] 1 puff INHALATION DAILY 08/21/19 Surgical History: noncontributory Psychiatric History: No pertinent psych hx Lives: Spouse/ Significant Other Smoking Status: Current every day smoker Tobacco Use: Cigarettes Alcohol: None Drugs: None - *Family History Maternal History Items: No pertinent history, - Paternal History Items: No pertinent history Review of Systems Constitutional: Reports: Weakness, Fatigue. Denies: Anorexia, Chills, Fever Eyes: Denies: Blurred vision, Double vision, Drainage, Redness HEENT: Denies: Difficulty Hearing, Ear Pain, Eye Pain, Nasal Congestion, Sore Throat Cardiovascular: Reports: Light Headedness. Denies: Chest Pain, Chest Pressure, Chest Tightness, Heaviness, Palpitations, Syncope Respiratory: Reports: Shortness of Breath, Shortness of breath at rest, Shortness of breath upon exertion. Denies: Cough, Sputum production, Wheezing Gastrointestinal: Denies: Abdominal Pain, Constipation, Diarrhea, Nausea, Vomiting Genitourinary: Denies: Dysuria, Frequency, Hematuria Musculoskeletal: Denies: Arm Pain, Back Pain, Foot Pain Skin: Denies: Dryness, Rash Neurological: Reports: Headaches. Denies: Balance problems, Double vision, Change in Speech, Slurred speech, Confusion, Incoordination, Numbness Psychiatric: Denies: Anxiety, Depression Endocrine: Denies: Change in Body Habitus, Polydipsia, Polyuria VTE Information - Inpt Only VTE Present on Admission: No VTE Mechan Device Prophylaxis: None VTE Pharm Prophylaxis ordered?: Yes Patient Problems: Active and Suspected Problems Intermittent hypotension (Acute) Near syncope (Acute) - Physical Exam Vitals/I&O's: Vital Signs Temp Pulse Resp BP Pulse Ox 98.0 F 85 16 111/46 L 94 08/21/19 19:17 08/21/19 19:17 08/21/19 19:17 08/21/19 19:17 08/21/19 19:17 Oxygen Delivery Method Room Air Weight: 148 lb Body Mass Index (BMI) 22.5 General: Alert, Oriented x3, Cooperative, - - Mildly short of breath. HEENT: Atraumatic, PERRLA, EOMI, Normocephalic Oral: Moist Mucosa, No Gingival or Mucosal Lesions/ Ulcerations Neck: Supple, No JVD, Negative Carotid Bruits, Trachea Midline, Thyroid Normal Size and Texture Lungs: Clear to auscultation, Normal air movement, No rhonchi, No wheeze, No rales, Diminished Cardiovascular: Regular rate, Regular Rhythm, Normal S1, Normal S2, PMI Normal Abdomen: Bowel Sounds Present, Soft, Non Tender, Non-Distended, No Hepato- splenomegaly Extremities: No clubbing, No cyanosis, No edema Skin: No rashes, No breakdown Lymphatic: No Cervical, Supraclavicular, or Inguinal Adenopathy Neurological: Cranial nerves II-XII grossly intact, Motor Exam 5/5 strength throughout Psych/Mental Status: Normal Affect, Appropriate, Alert and oriented to time, place, person, mood and affect Microbiology Past 72 Hours 08/21/19 13:50 Mucosa - Nasopharyngeal Coronavirus COVID-19 PCR - Final Laboratory Results 08/21/19 13:49: WBC 18.1 H, RBC 3.39 L, Hgb 10.8 L, Hct 32.7 L, MCV 96.5 H, MCH 31.9, MCHC 33.0, RDW Std Deviation 42.1, RDW Coeff of Tiara 11.9, Plt Count 206, MPV 9.5, Immature Gran % (Auto) 0.900, Neut % (Auto) 87.9 H, Lymph % (Auto) 5.5 L, [place] % (Auto) 5.4, Eos % (Auto) 0.1, Baso % (Auto) 0.2, Absolute Neuts (auto) 15.9 H, Absolute Lymphs (auto) 1.00, Nucleated RBC % 0 08/21/19 13:49: Sodium 132 L, Potassium 3.1 L, Chloride 99, Carbon Dioxide 25.0, Anion Gap 8, BUN 18, Creatinine 1.23, Estim Creat Clear Calc 42.45, Est GFR (MDRD) Af Amer 72, Est GFR (MDRD) Non-Af 60, BUN/Creatinine Ratio 14.6, Glucose 149 H, Calcium 8.7, Total Bilirubin 0.90, Direct Bilirubin 0.32 H, AST 13 L, ALT 15 L, Alkaline Phosphatase 51, Troponin I < 0.015, Total Protein 6.6, Albumin 3.0 L, Globulin 3.6 08/21/19 13:50: COVID-19 ([place]) Cancelled Clinical Impression(s) from Imaging Studies Chest CTA 08/21/19 13:22 IMPRESSION: Stable 1.1 cm nodule in the midportion of the left upper lobe. No evidence of the pulmonary embolism. 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 Moderate sized hiatal hernia with air-fluid level in the esophagus. Fluid distention of the stomach. Distended gallbladder. Electronically Signed: Anthony Rubin, at 14:51 EDT , Service support , Current Medications Sodium Chloride () 1,000 mls @ 150 mls/hr IV .[id number] JIM Last Admin: 08/21/19 18:58 Dose: 150 mls/hr Documented by: Assessment/Plan All Active Problems Intermittent hypotension (Acute) Near syncope (Acute) This is an 83 years old male patient was sent to ED by his oncologist because of dizziness, near syncopal episode and shortness of breath with concern of pneumonia or PE, found to have intermittent hypotension, mild hyponatremia and hypokalemia with concern for adrenal insufficiency and also found to have small pericardial effusion on CTA chest. #1 near syncope: Likely due to the hypotension which has been intermittent. EKG revealed normal sinus rhythm without evidence of acute segment changes. Troponin was negative. Although CTA chest revealed small precut effusion, no clinical evidence of cardiac tamponade. Plan: Admit to PCU for observation, cardiac monitoring, gentle IV fluids for hydration, ACTH stimulation test tomorrow morning as requested by Dr. Beth, 2D echocardiogram, repeat CBC and BMP tomorrow morning, orthostatic vitals tomorrow morning, PT OT evaluation and treatment. #2 intermittent hypotension: Unclear etiology. CTA chest showed no pneumonia or PE. Revealed small pericardial effusion and small amount of mural thrombus of the descending thoracic aorta. At this time, blood pressure improved with IV fluids but still fluctuating. Plan: Close monitoring of blood pressure, gentle IV fluids for hydration, 2D echocardiogram. #3 mild hyponatremia/mild hypokalemia: Sodium is 132, could be due to ascites due to his cancer. Potassium is 3.1. Patient received 1 dose of K. Dur 40 mEq in the ED. Plan: IV fluids with normal saline, will give another dose of K-Dur tomorrow morning, check serum magnesium, repeat BMP tomorrow morning. #4 COPD/chronic respiratory failure: On home oxygen at 2 L mainly at night. When I was interviewing the patient, her pulse ox went down to 79% on room air and quickly, it went up back to 94% on room air. Plan: Albuterol as needed, DuoNeb every 6 hours, oxygen by nasal cannula to keep O2 saturation more than 92%. #5 small cell lung cancer: Status post chemotherapy and radiation, stable at this time, recommend follow-up with oncology as outpatient. #6 hypertension: Blood pressure has been fluctuating in the ED, patient currently is not on any antihypertensive medications. Plan as above. #7 benign prostatic hypertrophy: Stable, continue alfuzosin and oxybutynin. #8 DVT prophylaxis on subcu Lovenox. This note was generated with SocStock[employer] software. It may contain incorrect words, spelling, and punctuation that were not noted in checking the note before signing. OBSV E&M: [id number] Initial observation care L3
--- NOTE | 2019-08-21 20:14 | ECHOD_ITS ---
Reason For Study: SOB Procedure This was a 2D Doppler, Color Flow transthoracic echocardiogram. The study was technically difficult. Exam performed portable in patient room. Left Ventricle Normal size and thickness. The estimated ejection fraction is 65 %. Stage 1 diastolic dysfunction. No regional wall motion abnormalities noted. Right Ventricle Normal size and thickness. Normal systolic function. Atria Normal left atrium. Normal right atrium. Normal atrial septum. Mitral Valve The mitral valve is structurally normal. No prolapse or stenosis seen. Tricuspid Valve Normal tricuspid valve. Unable to estimate RV systolic pressure due to insufficient tricuspid regurgitant envelope. Aortic Valve Normal aortic valve. Trisinus/trileaflet aortic valve. Pulmonic Valve Normal pulmonic valve. Great Vessels Normal aortic root. Normal arch. Normal inferior vena cava. Inferior vena cava collapse with sniff. Pericardium/Pleural Trivial pericardial effusion. There are no echocardiographic indications of cardiac tamponade. MMode/2D Measurements & Calculations LVIDd: 3.8 cm IVSd: 1.1 cm Ao root diam: 4.0 cm LVIDs: 2.4 cm LVPWd: 1.1 cm RVDd: 3.5 cm FS: 35.7 % LAV(MOD-bp): 34.7 ml LA A4 area: 10.2 cm2 LA dimension(2D): 3.2 cm LAV(MOD-bp) Indexed: 19.0 ml/m2 LAV(MOD-sp2): 36.0 ml LAV(MOD-sp4): 26.6 ml RA A4 area: 11.5 cm2 Doppler Measurements & Calculations MV E max faheem: 69.5 cm/sec Lat Peak E' Faheem: 7.0 cm/sec Med Peak E' Faheem: 7.1 cm/sec MV A max faheem: 110.4 cm/sec E/E' lat: 9.9 E/E' med: 9.8 MV E/A: 0.63 Ao V2 max: 193.0 cm/sec LV V1 max: 99.1 cm/sec PA V2 max: 130.4 cm/sec Ao max P.9 mmHg LV V1 max P.9 mmHg Interpretation Summary The estimated ejection fraction is 65 %. Stage 1 diastolic dysfunction. Unable to estimate RV systolic pressure due to insufficient tricuspid regurgitant envelope. Trivial to small, mostly anterior pericardial effusion. There are no echocardiographic indications of cardiac tamponade. There is no comparison study available. Ordering Physician: Reba Morocho Referring Physician: Lavelle Nolasco M.D. Performed By: Mary Ellen Richardson RDCS
[2019-08-21] MEDS: 0.9% Normal Saline 1,000 ML 100 ML IV (20:15)
[2019-08-21 21:25] LABS: Magnesium 1.6 mg/dL (1.6-2.6); Thyroid Stim Hormone (TSH) 1.17 uIU/mL (0.358-3.74)
[2019-08-21] MEDS: Cosyntropin 0.25 MG in 0.9% Normal Saline (Pres. free 1 ML 30 MG IV (21:55)
[2019-08-21] MEDS: Atorvastatin Calcium 10 MG Tablet PO (21:56)
[2019-08-21 23:02] LABS: Mucous, Urine 0 SEEN /hpf (<or=2+); Red Blood Cells-Urine 0 SEEN /hpf (0-5)
[2019-08-21 23:03] LABS: Color, Urine Yellow (Yellow); Glucose, Dipstick Normal (Normal); Ketone-Dipstick Negative (Negative); Leukocyte Esterase-Dipstick 500 /ul (Negative); Nitrite-Dipstick Positive (Negative); Occult Blood-Urine 25 /ul (Negative); Protein-Dipstick Negative (Negative); Urine Bilirubin Dipstick Negative (Negative); Urine Clarity Sl. Cloudy (Clear); Urine Urobilinogen Normal (Normal)
[2019-08-21 23:15] LABS: Bacteria 2+ /hpf (None Seen); Squamous Epithelial Cells - UA 0-5 SEEN /hpf (0-5); White Blood Cells 10-25 SEEN /hpf (0-5)
[2019-08-22] VITALS (12 sets, daily range): BP systolic 99–134; BP diastolic 45–80; PULSE 78–116; RESP 16–20; TEMP 36.6–37.1; O2SAT 95–98
[2019-08-22 06:03] LABS: Absolute Lymphocyte Count 0.68 X10^3/uL (0.83-4.51); Absolute Neutrophil Count 13.6 X10^3/uL (2.0-7.7); Basophil# 0.02 X10^3/uL; Basophil% 0.1 % (0-1); Hematocrit 28.4 % (40-54); Hemoglobin 9.6 g/dL (13.0-16.5); Lymphocyte # 0.68 X10^3/ul (4.0); Lymphocyte % 4.5 % (19-41); Mean Corp Hgb Conc 33.8 g/dL (32-36); Mean Corpuscular Hgb 31.8 pg (27.0-32.0); Mean Platelet Vol. 9.8 fl (6.2-12.0); Monocyte# 0.64 X10^3/uL; Monocyte% 4.3 % (0-10); NRBC Flagged by Analyzer 0 % (0-5); Neutrophil # 13.61 X10^3/uL (2.7-7.7); Neutrophil % 90.6 % (47-70); Platelet Count 202 K/mm3 (150-450); RBC Distribution Width CV 11.9 % (11.6-14.6); RBC Distribution Width SD 41.1 fl (35.1-43.9); Red Blood Count 3.02 M/mm3 (4.6-6.2)
[2019-08-22 06:27] LABS: Anion Gap 9 (5-15); BUN 13 mg/dL (7-18); BUN/Creat Ratio 14.2 RATIO (10-20); Calcium,Total 8.5 mg/dL (8.5-10.1); Chloride 101 mmol/L (98-107); Creatinine, Serum 0.92 mg/dL (0.70-1.30); EST Glomerular Filtration Rate 84 mL/min (>60); Est Glom Filt Rate - Afr Amer 101 mL/min (>60); Estimated Creatinine Clearance 56.39 ml/min; Glucose 133 mg/dL (74-106); Potassium 3.8 mmol/L (3.5-5.1); Sodium Level 133 mmol/L (136-145)
[2019-08-22] MEDS: Cilostazol 50 MG Tablet 100 MG PO ×2 (06:47→17:51)
[2019-08-22] MEDS: Aspirin 81 MG TAB.CHEW PO (08:52)
[2019-08-22] MEDS: Enoxaparin 40 MG/0.4 ML Syringe SC (09:48)
[2019-08-22] MEDS: Tolterodine Tartrate 4 MG CAP.SA PO (09:48)
[2019-08-22] MEDS: Pantoprazole Sodium 40 MG Tablet PO (09:48)
--- NOTE | 2019-08-22 13:26 | PN_ITS ---
Patient Problems: Active and Suspected Problems Intermittent hypotension (Acute) Near syncope (Acute) Subjective: Patient seen and examined. States he feels generally weak however ambulating fairly well. Does not want to go to SNF at discharge, agreeable to home therapies. Denies fever, chills. Denies other complaints. - Physical Exam Vitals/I&O's: Vital Signs Temp Pulse Resp BP Pulse Ox 97.9 F 80 16 132/70 H 97 08/22/19 11:25 08/22/19 11:25 08/22/19 11:25 08/22/19 11:25 08/22/19 11:25 Oxygen Delivery Method Room Air Weight: 147 lb 0.773 oz Body Mass Index (BMI) 21.1 Orthostatic Vital Signs Start: 08/22/19 01:32 Freq: q24h Status: Active Protocol: Activity Type Activity Date Activity User E-Sign Co-Sign Detail Recorded Client Recorded Date Recorded By Document 08/22/19 01:32 [id number] 08/22/19 01:33 08/22/19 01:32 Orthostatic Vitals Standing -Blood Pressure (90/60-120/80) 99/46 L -Extremity Use Left Arm -Pulse Rate (60-100) 116 H Sitting -Blood Pressure (90/60-120/80) 130/54 H -Extremity Use Left Arm -Pulse Rate (60-100) 105 H Lying -Blood Pressure (90/60-120/80) 118/45 L -Extremity Use Left Arm -Pulse Rate (60-100) 98 Intake and Output for Last 24 Hours 08/20/19 08/21/19 08/22/19 23:59 23:59 23:59 Intake Total 664.33 / 664.33 906.67 / 906.67 Output Total 200 / 200 Balance 464.33 / 464.33 906.67 / 906.67 General: Alert, Oriented x3, Cooperative HEENT: Atraumatic, PERRLA, EOMI, Normocephalic Oral: Dry Mucosa Neck: Supple, No JVD, Negative Carotid Bruits Lungs: Clear to auscultation, Diminished Cardiovascular: Regular rate, No murmurs Abdomen: Bowel Sounds Present, Soft, Non Tender, Non-Distended Extremities: No clubbing, No cyanosis, No edema, Capillary Refill Less than 3 Seconds Skin: No rashes, No breakdown Musculoskeletal: No Tenderness to Palpation of Joints or Extremities, Cachexia, Tenderness Neurological: Cranial nerves II-XII grossly intact Psych/Mental Status: Normal Affect, Appropriate Microbiology Past 72 Hours 08/21/19 13:50 Mucosa - Nasopharyngeal Coronavirus COVID-19 PCR - Final Laboratory Results 08/21/19 13:49: WBC 18.1 H, RBC 3.39 L, Hgb 10.8 L, Hct 32.7 L, MCV 96.5 H, MCH 31.9, MCHC 33.0, RDW Std Deviation 42.1, RDW Coeff of Tiara 11.9, Plt Count 206, MPV 9.5, Immature Gran % (Auto) 0.900, Neut % (Auto) 87.9 H, Lymph % (Auto) 5.5 L, Sharkey % (Auto) 5.4, Eos % (Auto) 0.1, Baso % (Auto) 0.2, Absolute Neuts (auto) 15.9 H, Absolute Lymphs (auto) 1.00, Nucleated RBC % 0 08/21/19 13:49: Sodium 132 L, Potassium 3.1 L, Chloride 99, Carbon Dioxide 25.0, Anion Gap 8, BUN 18, Creatinine 1.23, Estim Creat Clear Calc 42.45, Est GFR (MDRD) Af Amer 72, Est GFR (MDRD) Non-Af 60, BUN/Creatinine Ratio 14.6, Glucose 149 H, Calcium 8.7, Total Bilirubin 0.90, Direct Bilirubin 0.32 H, AST 13 L, ALT 15 L, Alkaline Phosphatase 51, Troponin I < 0.015, Total Protein 6.6, Albumin 3.0 L, Globulin 3.6 08/21/19 13:50: COVID-19 ([place]) Cancelled 08/21/19 20:36: Magnesium 1.6, TSH 1.17 08/21/19 20:36: Cortisol 13.80 08/21/19 22:33: Cortisol 32.00 H 08/21/19 22:40: Urine Color Yellow, Urine Clarity Sl. Cloudy, Urine pH 5.0, Ur Specific [place] 1.010, Urine Protein Negative, Urine Glucose (UA) Normal, Urine Ketones Negative, Urine Occult Blood 25 H, Urine Nitrite Positive H, Urine Bilirubin Negative, Urine Urobilinogen Normal, Ur Leukocyte Esterase 500 H, Urine RBC 0 SEEN, Urine WBC 10-25 SEEN, Ur Squamous Epith Cells 0-5 SEEN, Urine Bacteria 2+, Urine Mucus 0 SEEN 08/21/19 23:01: Cortisol 38.20 H 08/22/19 05:27: WBC 15.0 H, RBC 3.02 L, Hgb 9.6 L, Hct 28.4 L, MCV 94.0, MCH 31.8, MCHC 33.8, RDW Std Deviation 41.1, RDW Coeff of [place] 11.9, Plt Count 202, MPV 9.8, Immature Gran % (Auto) 0.500, Neut % (Auto) 90.6 H, Lymph % (Auto) 4.5 L, Sharkey % (Auto) 4.3, Eos % (Auto) 0.0, Baso % (Auto) 0.1, Absolute Neuts (auto) 13.6 H, Absolute Lymphs (auto) 0.68 L, Nucleated RBC % 0 08/22/19 05:27: Sodium 133 L, Potassium 3.8, Chloride 101, Carbon Dioxide 23.0, Anion Gap 9, BUN 13, Creatinine 0.92, Estim Creat Clear Calc 56.39, Est GFR (MDRD) Af Amer 101, Est GFR (MDRD) Non-Af 84, BUN/Creatinine Ratio 14.2, Glucose 133 H, Calcium 8.5 Current Medications Acetaminophen (Tylenol) 650 mg PO Q6H PRN PRN PRN Reason: Pain Score 1-10/Temp > 100.7 F Albuterol Sulfate (Ventolin Aerosols) 2.5 mg INHALATION Q2H PRN PRN PRN Reason: SOB/Wheezing Albuterol/Ipratropium (Duoneb) 3 ml INHALATION Q6H.RT [facility] Last Admin: 08/22/19 07:00 Dose: Not Given Documented by: Aspirin (Aspirin, Baby) 81 mg PO DAILY@0800 [facility] Last Admin: 08/22/19 08:52 Dose: 81 mg Documented by: Atorvastatin Calcium (Lipitor) 10 mg PO QHS [facility] Last Admin: 08/21/19 21:56 Dose: 10 mg Documented by: Cilostazol (Pletal) 100 mg PO BIDAC [facility] Last Admin: 08/22/19 06:47 Dose: 100 mg Documented by: Enoxaparin Sodium (Lovenox) 40 mg SC DAILY [facility] Last Admin: 08/22/19 09:48 Dose: 40 mg Documented by: Sodium Chloride () 250 mls @ 15 mls/hr IV .[id number] PRN PRN Reason: Saline Flush Sodium Chloride () 250 mls @ 15 mls/hr IV .[id number] PRN PRN Reason: Additional IVPB Infusion Ondansetron HCl (Zofran) 4 mg IV Q8H PRN PRN PRN Reason: NAUSEA/VOMITING Pantoprazole Sodium (Protonix) 40 mg PO DAILY [facility] Last Admin: 08/22/19 09:48 Dose: 40 mg Documented by: Senna/Docusate Sodium (Senokot-S, Megan-Colace) 2 tablet PO BID PRN PRN PRN Reason: Constipation Sodium Chloride () 10 - 40 ml IV UD PRN PRN Reason: SALINE FLUSH Tamsulosin HCl (Flomax) 0.4 mg PO DAILY@1730 [facility] Tolterodine Tartrate (Detrol La) 4 mg PO DAILY [facility] Last Admin: 08/22/19 09:48 Dose: 4 mg Documented by: Tramadol HCl (Ultram) 50 mg PO BID PRN PRN PRN Reason: Pain Score 1-10/10 Zolpidem Tartrate (Ambien (Generic)) 5 mg PO QHS PRN PRN PRN Reason: INSOMNIA Medical Necessity - Tobacco Use Smoking Status: Current every day smoker Tobacco Use: Cigarettes Assessment/Plan All Active Problems Intermittent hypotension (Acute) Near syncope (Acute) 1. Near syncope, suspect secondary to orthostatic hypotension-orthostatic vitals positive. Troponin negative. Echocardiogram demonstrates an EF of 65%, stage I diastolic dysfunction. Cortisol elevated however does not appear consistent with adrenal insufficiency. Hold home alfuzosin regimen. Gentle IV fluids. Repeat more those in a.m. 2. Acute UTI-initiate IV Rocephin, culture pending. 3. Debility, generalized weakness- PT/OT. Patient declining SNF. Plan for home therapies pending further PT eval. 4. COPD with chronic hypoxic respiratory failure-on 2 L nasal cannula, mostly at night. Continue supplement oxygen to maintain O2 sat above 90%. Walking pulse ox prior to discharge. Albuterol and DuoNeb aerosols. 5. Small cell lung cancer-status post chemo and radiation. Following with Dr. Beth. 6. Hypertension-not on regimen. Having intermittent hypotension. 7. Hyperlipidemia-continue statin. 8. BPH-on oxybutynin, alfuzosin. 9. GERD-continue PPI. 10. Chronic macrocytic anemia- stable, trend CBC. DVT prophylaxis-Lovenox subcu This patient was seen by FRANCESCA Nunez under the supervision of Dr. Nelson.
--- NOTE | 2019-08-22 15:20 | CASEMGMT ---
This RN CM to room with MUSA form at this time, explanation, done-pt voices understanding, and signs MUSA form at this time. Original to chart and copy to pt at this time. Pt voices no further questions/concerns/needs at this time. Pt denies need for any further therapy at this time. Pt states lives with and states no concerns with going home at time of discharge. Pt is A/Ox4 at this time. SStaten MARTINE CM
[2019-08-22] MEDS: Tamsulosin HCl 0.4 MG Capsule PO (17:53)
[2019-08-22] MEDS: Acetaminophen 325 MG Tablet 650 MG PO (20:06)
[2019-08-22] MEDS: Atorvastatin Calcium 10 MG Tablet PO (21:09)
[2019-08-23] VITALS (7 sets, daily range): BP systolic 95–155; BP diastolic 55–87; PULSE 74–102; RESP 16; TEMP 36.5–36.9; O2SAT 95–99
[2019-08-23] MEDS: Acetaminophen 325 MG Tablet 650 MG PO (02:53)
[2019-08-23 06:24] LABS: Hematocrit 30.8 % (40-54); Hemoglobin 10.2 g/dL (13.0-16.5); Mean Corp Hgb Conc 33.1 g/dL (32-36); Mean Corpuscular Hgb 31.2 pg (27.0-32.0); Mean Corpuscular Volume 94.2 fL (80-94); Mean Platelet Vol. 9.7 fl (6.2-12.0); Platelet Count 229 K/mm3 (150-450); RBC Distribution Width CV 11.6 % (11.6-14.6); RBC Distribution Width SD 40.1 fl (35.1-43.9); Red Blood Count 3.27 M/mm3 (4.6-6.2)
[2019-08-23 06:34] LABS: Anion Gap 7 (5-15); BUN 9 mg/dL (7-18); BUN/Creat Ratio 10.4 RATIO (10-20); Calcium,Total 8.6 mg/dL (8.5-10.1); Chloride 102 mmol/L (98-107); Creatinine, Serum 0.86 mg/dL (0.70-1.30); EST Glomerular Filtration Rate 89 mL/min (>60); Est Glom Filt Rate - Afr Amer 108 mL/min (>60); Estimated Creatinine Clearance 60.32 ml/min; Glucose 92 mg/dL (74-106); Potassium 3.6 mmol/L (3.5-5.1); Sodium Level 134 mmol/L (136-145)
[2019-08-23] MEDS: Cilostazol 50 MG Tablet 100 MG PO ×2 (06:47→08:58)
[2019-08-23] MEDS: Aspirin 81 MG TAB.CHEW PO (08:57)
[2019-08-23] MEDS: Tolterodine Tartrate 4 MG CAP.SA PO (08:58)
[2019-08-23] MEDS: Pantoprazole Sodium 40 MG Tablet PO (08:58)
[2019-08-23] MEDS: Enoxaparin 40 MG/0.4 ML Syringe SC (08:58)
--- NOTE | 2019-08-23 11:09 | CASEMGMT ---
Per Dr. Nelson, Dr. Beth wants pt to be set up with HHC SN at discharge but pt declines any HHC at this time. Nilay FARLEY CM
--- NOTE | 2019-08-23 11:34 | DCINST_ITS ---
- Discharge Diagnoses Current Active Problems: Current Active and Chronic Problems Intermittent hypotension (Acute) Near syncope (Acute) You will use the following diet at home:: No restrictions Your food should be the consistency of: Regular Your liquids should be the consistency of: Regular/Thin Discharge Activity: Return to Normal Activity Allergies/Adverse Reactions: Allergies ciprofloxacin Allergy (Verified 02/09/19 12:05) Hives Medications to take at Discharge Cilostazol 100 mg PO BID 04/01/18 Omeprazole 40 mg PO DAILY 04/01/18 Oxybutynin Chloride [Oxybutynin Chloride ER] 30 mg PO DAILY 04/01/18 Simvastatin 20 mg PO DAILY 04/01/18 traMADol [Ultram] 50 mg PO BID PRN PRN 04/01/18 Acetaminophen [Tylenol Extra Strength] 500 mg PO BID PRN 01/23/19 Alfuzosin HCl [Alfuzosin HCl ER] 10 mg PO DAILY 01/23/19 Aspirin [Aspirin, Baby] 81 mg PO DAILY@0800 01/23/19 Multivit-Min/FA/Lycopen/Lutein [Centrum Silver Men Tablet] 1 tab PO DAILY 01/23/19 Mometasone Furoate [Asmanex Hfa] 1 puff INHALATION BID 08/21/19 Tiotropium [place] [Spiriva 18 MCG] 1 puff INHALATION DAILY 08/21/19 Cephalexin [Keflex] 500 mg PO TID #15 cap 08/23/19 The following prescriptions were given: Cephalexin [Keflex] 500 mg PO TID #15 cap Transmission Status: Pending to [id number] Primary Care Physician: Lavelle Nolasco MD [Primary Care Provider] - Test Results: Test results from this visit will be discussed in further detail at your follow- up appointment, if applicable. Please Follow Up With: Lavelle Nolasco MD
[2019-08-23] MEDS: 0.9% Saline Lock 10 ML Syringe IV (12:56)
--- NOTE | 2019-08-23 15:08 | PCM.PN.HOSP ---
Patient Problems: Active and Suspected Problems Intermittent hypotension (Acute) Near syncope (Acute) Vitals/I&O's: Vital Signs Temp Pulse Resp BP Pulse Ox 98.5 F 89 16 126/63 H 99 08/23/19 14:08/23/19 14:26 08/23/19 14:08/23/19 14:08/23/19 14:26 Oxygen Delivery Method Room Air Weight: 147 lb 0.773 oz Body Mass Index (BMI) 21.1 Orthostatic Vital Signs Start: 08/22/19 01:32 Freq: q24h Status: Active Protocol: Activity Type Activity Date Activity User E-Sign Co-Sign Detail Recorded Client Recorded Date Recorded By Document 08/23/19 05:15 [id number] 08/23/19 05:25 CS 08/23/19 05:15 Orthostatic Vitals Standing -Blood Pressure (90/60-120/80) 95/74 -Extremity Use Right Arm -Pulse Rate (60-100) 102 H Sitting -Blood Pressure (90/60-120/80) 130/73 H -Extremity Use Right Arm -Pulse Rate (60-100) 90 Lying -Blood Pressure (90/60-120/80) 141/74 H -Extremity Use Right Arm -Pulse Rate (60-100) 90 Intake and Output for Last 24 Hours 08/21/19 08/22/19 08/23/19 23:59 23:59 23:59 Intake Total 664.33 / 664.33 1305.67 / 1305.67 183.25 / 183.25 Output Total 200 / 200 Balance 464.33 / 464.33 1305.67 / 1305.67 183.25 / 183.25 Microbiology Past 72 Hours 08/21/19 22:40 Urine, Clean Catch Urine Culture - Preliminary Presumptive E. coli 08/21/19 13:50 Mucosa - Nasopharyngeal Coronavirus COVID-19 PCR - Final Laboratory Results 08/23/19 05:46: WBC 10.0, RBC 3.27 L, Hgb 10.2 L, Hct 30.8 L, MCV 94.2 H, MCH 31.2, MCHC 33.1, RDW Std Deviation 40.1, RDW Coeff of Tiara 11.6, Plt Count 229, MPV 9.7 08/23/19 05:46: Sodium 134 L, Potassium 3.6, Chloride 102, Carbon Dioxide 25.0, Anion Gap 7, BUN 9, Creatinine 0.86, Estim Creat Clear Calc 60.32, Est GFR (MDRD) Af Amer 108, Est GFR (MDRD) Non-Af 89, BUN/Creatinine Ratio 10.4, Glucose 92, Calcium 8.6 Current Medications Acetaminophen (Tylenol) 650 mg PO Q6H PRN PRN PRN Reason: Pain Score 1-10/Temp > 100.7 F Last Admin: 08/23/19 02:53 Dose: 650 mg Documented by: Albuterol Sulfate (Ventolin Aerosols) 2.5 mg INHALATION Q2H PRN PRN PRN Reason: SOB/Wheezing Albuterol/Ipratropium (Duoneb) 3 ml INHALATION Q6H.RT [facility] Last Admin: 08/23/19 13:05 Dose: Not Given Documented by: Aspirin (Aspirin, Baby) 81 mg PO DAILY@0800 [facility] Last Admin: 08/23/19 08:57 Dose: 81 mg Documented by: Atorvastatin Calcium (Lipitor) 10 mg PO QHS [facility] Last Admin: 08/22/19 21:09 Dose: 10 mg Documented by: Cilostazol (Pletal) 100 mg PO BIDAC [facility] Last Admin: 08/23/19 08:58 Dose: 100 mg Documented by: Enoxaparin Sodium (Lovenox) 40 mg SC DAILY [facility] Last Admin: 08/23/19 08:58 Dose: 40 mg Documented by: Heparin Sodium (Beef Lung) () 50 units IV UD PRN PRN Reason: Port-a-Cath (VAD)Heparin Flush Last Admin: 08/23/19 12:57 Dose: 50 units Documented by: Sodium Chloride () 250 mls @ 15 mls/hr IV .[id number] PRN PRN Reason: Saline Flush Last Infusion: 08/23/19 12:57 Dose: Infused Documented by: Sodium Chloride () 250 mls @ 15 mls/hr IV .[id number] PRN PRN Reason: Additional IVPB Infusion Ceftriaxone Sodium 2 gm/ (Sodium Chloride) 50 mls @ 100 mls/hr IV Q24 [facility] Last Infusion: 08/23/19 10:44 Dose: Infused Documented by: Ondansetron HCl (Zofran) 4 mg IV Q8H PRN PRN PRN Reason: NAUSEA/VOMITING Pantoprazole Sodium (Protonix) 40 mg PO DAILY [facility] Last Admin: 08/23/19 08:58 Dose: 40 mg Documented by: Senna/Docusate Sodium (Senokot-S, Megan-Colace) 2 tablet PO BID PRN PRN PRN Reason: Constipation Sodium Chloride () 10 - 40 ml IV UD PRN PRN Reason: SALINE FLUSH Last Admin: 08/23/19 12:56 Dose: 10 ml Documented by: Sodium Chloride () 10 - 40 ml IV UD PRN PRN Reason: Port-a-Cath (VAD) Flush Sodium Chloride (0.9% Nacl (Sterile) Posiflush) 10 - 40 ml IV UD PRN PRN Reason: Port access or dressing change Tamsulosin HCl (Flomax) 0.4 mg PO DAILY@1730 [facility] Last Admin: 08/22/19 17:53 Dose: 0.4 mg Documented by: Tolterodine Tartrate (Detrol La) 4 mg PO DAILY [facility] Last Admin: 08/23/19 08:58 Dose: 4 mg Documented by: Tramadol HCl (Ultram) 50 mg PO BID PRN PRN PRN Reason: Pain Score 1-10/10 Zolpidem Tartrate (Ambien (Generic)) 5 mg PO QHS PRN PRN PRN Reason: INSOMNIA STROKE Vital Signs/Narrative: Vital Signs Temp Pulse Resp BP Pulse Ox 08/23/19 14:26 98.5 F 89 16 126/63 H 99 Medical Necessity - Tobacco Use Smoking Status: Current every day smoker Tobacco Use: Cigarettes Assessment/Plan All Active Problems Intermittent hypotension (Acute) Near syncope (Acute)
--- NOTE | 2019-08-23 15:43 | PCM.DC.SUM ---
Discharge Date and Diagnosis - Problem List Patient Problems: Active and Suspected Problems Intermittent hypotension (Acute) Near syncope (Acute) Date of Admission: 08/21/19 Date of Discharge: 08/23/19 - Primary Discharge Diagnosis Acute Problems: Active Problems Acute UTI, E coli Orthostatic hypotension Debility, generalized weakness COPD with chronic hypoxic respiratory failure, no acute exacerbation Non-small cell lung cancer Hypertension - Secondary Discharge Diagnosis Chronic Problems: Chronic Problems Small cell lung cancer (Chronic) Tobacco dependence syndrome (Chronic) PVD (peripheral vascular disease) (Chronic) HTN (hypertension) (Chronic) BPH (benign prostatic hyperplasia) (Chronic) Hospital Course and Treatment Imaging Results: CT/CTA Chest W/WO Contrast IMPRESSION: Stable 1.1 cm nodule in the midportion of the left upper lobe. No evidence of the pulmonary embolism. 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 Moderate sized hiatal hernia with air-fluid level in the esophagus. Fluid distention of the stomach. Distended gallbladder. 2D echo: Interpretation Summary The estimated ejection fraction is 65 %. Stage 1 diastolic dysfunction. Unable to estimate RV systolic pressure due to insufficient tricuspid regurgitant envelope. Trivial to small, mostly anterior pericardial effusion. There are no echocardiographic indications of cardiac tamponade. There is no comparison study available. Operations: None Procedures: 2-D Echocardiogram Summary of Care Provided: Hospital course: The patient is a 83 year old M with past medical history as above, notably small cell lung cancer, patient of Dr. Beth, who was sent to the emergency room for dizziness and near syncope, along with shortness of breath. A CT of the chest was obtained and demonstrated a small pericardial effusion however no evidence of cardiac tamponade. The patient had significant orthostatic hypotension. He was given IV fluids. He was also found to have an acute urinary tract infection. His white blood cell count was elevated at 18,000. Cortisol was checked and it was elevated at 38.2. TSH was normal. Echo was obtained and demonstrated an EF of 65%, stage I diastolic dysfunction, no evidence of tamponade, trivial to small mostly anterior pericardial effusion. Urine culture demonstrated presumptive E. coli. He had E. coli in his urine in the past which was pansensitive. He was treated with Rocephin, and at discharge this was transitioned to Keflex. Leukocytosis resolved. He was afebrile throughout stay. He did have some underlying debility however he was not interested in [place] [facility] placement, home health services were offered and he was also not interested and declined to these as well. He was discharged home in stable condition. He will need to follow-up with his oncologist as directed, with his PCP in 1 to 2 weeks. This patient was seen by Isaac Jimenez PA-C under the supervision of Doctor Leslie. [] Patient Problems: Active and Suspected Problems Intermittent hypotension (Acute) Near syncope (Acute) - Physical Exam Vitals/I&O's: Vital Signs Temp Pulse Resp BP Pulse Ox 98.5 F 89 16 126/63 H 99 08/23/19 14:26 08/23/19 14:26 08/23/19 14:26 08/23/19 14:08/23/19 14:26 Oxygen Delivery Method Room Air Weight: 147 lb 0.773 oz Body Mass Index (BMI) 21.1 Orthostatic Vital Signs Start: 08/22/19 01:32 Freq: q24h Status: Active Protocol: Activity Type Activity Date Activity User E-Sign Co-Sign Detail Recorded Client Recorded Date Recorded By Document 08/23/19 05:15 CS [id number] 08/23/19 05:25 CS 08/23/19 05:15 Orthostatic Vitals Standing -Blood Pressure (90/60-120/80) 95/74 -Extremity Use Right Arm -Pulse Rate (60-100) 102 H Sitting -Blood Pressure (90/60-120/80) 130/73 H -Extremity Use Right Arm -Pulse Rate (60-100) 90 Lying -Blood Pressure (90/60-120/80) 141/74 H -Extremity Use Right Arm -Pulse Rate (60-100) 90 Intake and Output for Last 24 Hours 08/21/19 08/22/19 08/23/19 23:59 23:59 23:59 Intake Total 664.33 / 664.33 1305.67 / 1305.67 183.25 / 183.25 Output Total 200 / 200 Balance 464.33 / 464.33 1305.67 / 1305.67 183.25 / 183.25 General: Alert, Oriented x3, Cooperative HEENT: Atraumatic, PERRLA, EOMI, Normocephalic Neck: Supple, No JVD, Negative Carotid Bruits Lungs: Clear to auscultation, Normal air movement Cardiovascular: Regular rate, No murmurs Abdomen: Bowel Sounds Present, Soft, Non Tender Extremities: No edema, Capillary Refill Less than 3 Seconds Skin: No rashes, No breakdown Musculoskeletal: No Tenderness to Palpation of Joints or Extremities Neurological: Cranial nerves II-XII grossly intact Psych/Mental Status: Normal Affect, Appropriate, Alert and oriented to time, place, person, mood and affect Microbiology Past 72 Hours 08/21/19 22:40 Urine, Clean Catch Urine Culture - Preliminary Presumptive E. coli 08/21/19 13:50 Mucosa - Nasopharyngeal Coronavirus COVID-19 PCR - Final Laboratory Results 08/23/19 05:46: WBC 10.0, RBC 3.27 L, Hgb 10.2 L, Hct 30.8 L, MCV 94.2 H, MCH 31.2, MCHC 33.1, RDW Std Deviation 40.1, RDW Coeff of Tiara 11.6, Plt Count 229, MPV 9.7 08/23/19 05:46: Sodium 134 L, Potassium 3.6, Chloride 102, Carbon Dioxide 25.0, Anion Gap 7, BUN 9, Creatinine 0.86, Estim Creat Clear Calc 60.32, Est GFR (MDRD) Af Amer 108, Est GFR (MDRD) Non-Af 89, BUN/Creatinine Ratio 10.4, Glucose 92, Calcium 8.6 Current Medications Acetaminophen (Tylenol) 650 mg PO Q6H PRN PRN PRN Reason: Pain Score 1-10/Temp > 100.7 F Last Admin: 08/23/19 02:53 Dose: 650 mg Documented by: Albuterol Sulfate (Ventolin Aerosols) 2.5 mg INHALATION Q2H PRN PRN PRN Reason: SOB/Wheezing Albuterol/Ipratropium (Duoneb) 3 ml INHALATION Q6H.RT [facility] Last Admin: 08/23/19 13:05 Dose: Not Given Documented by: Aspirin (Aspirin, Baby) 81 mg PO DAILY@0800 [facility] Last Admin: 08/23/19 08:57 Dose: 81 mg Documented by: Atorvastatin Calcium (Lipitor) 10 mg PO QHS [facility] Last Admin: 08/22/19 21:09 Dose: 10 mg Documented by: Cilostazol (Pletal) 100 mg PO BIDAC [facility] Last Admin: 08/23/19 08:58 Dose: 100 mg Documented by: Enoxaparin Sodium (Lovenox) 40 mg SC DAILY [facility] Last Admin: 08/23/19 08:58 Dose: 40 mg Documented by: Heparin Sodium (Beef Lung) () 50 units IV UD PRN PRN Reason: Port-a-Cath (VAD)Heparin Flush Last Admin: 08/23/19 12:57 Dose: 50 units Documented by: Sodium Chloride () 250 mls @ 15 mls/hr IV .[id number] PRN PRN Reason: Saline Flush Last Infusion: 08/23/19 12:57 Dose: Infused Documented by: Sodium Chloride () 250 mls @ 15 mls/hr IV .[id number] PRN PRN Reason: Additional IVPB Infusion Ceftriaxone Sodium 2 gm/ (Sodium Chloride) 50 mls @ 100 mls/hr IV Q24 [facility] Last Infusion: 08/23/19 10:44 Dose: Infused Documented by: Ondansetron HCl (Zofran) 4 mg IV Q8H PRN PRN PRN Reason: NAUSEA/VOMITING Pantoprazole Sodium (Protonix) 40 mg PO DAILY [facility] Last Admin: 08/23/19 08:58 Dose: 40 mg Documented by: Senna/Docusate Sodium (Senokot-S, Megan-Colace) 2 tablet PO BID PRN PRN PRN Reason: Constipation Sodium Chloride () 10 - 40 ml IV UD PRN PRN Reason: SALINE FLUSH Last Admin: 08/23/19 12:56 Dose: 10 ml Documented by: Sodium Chloride () 10 - 40 ml IV UD PRN PRN Reason: Port-a-Cath (VAD) Flush Sodium Chloride (0.9% Nacl (Sterile) Posiflush) 10 - 40 ml IV UD PRN PRN Reason: Port access or dressing change Tamsulosin HCl (Flomax) 0.4 mg PO DAILY@1730 [facility] Last Admin: 08/22/19 17:53 Dose: 0.4 mg Documented by: Tolterodine Tartrate (Detrol La) 4 mg PO DAILY [facility] Last Admin: 08/23/19 08:58 Dose: 4 mg Documented by: Tramadol HCl (Ultram) 50 mg PO BID PRN PRN PRN Reason: Pain Score 1-10/10 Zolpidem Tartrate (Ambien (Generic)) 5 mg PO QHS PRN PRN PRN Reason: INSOMNIA Discharge Diet: Low fat/ Low Cholesterol, 2000 mg Sodium Diet Discharge Activity: Return to Normal Activity Home Medications: Medications to take at Discharge Cilostazol 100 mg PO BID 04/01/18 Omeprazole 40 mg PO DAILY 04/01/18 Oxybutynin Chloride [Oxybutynin Chloride ER] 30 mg PO DAILY 04/01/18 Simvastatin 20 mg PO DAILY 04/01/18 traMADol [Ultram] 50 mg PO BID PRN PRN 04/01/18 Acetaminophen [Tylenol Extra Strength] 500 mg PO BID PRN 01/23/19 Alfuzosin HCl [Alfuzosin HCl ER] 10 mg PO DAILY 01/23/19 Aspirin [Aspirin, Baby] 81 mg PO DAILY@0800 01/23/19 Multivit-Min/FA/Lycopen/Lutein [Centrum Silver Men Tablet] 1 tab PO DAILY 01/23/19 Mometasone Furoate [Asmanex Hfa] 1 puff INHALATION BID 08/21/19 Tiotropium [place] [Spiriva 18 MCG] 1 puff INHALATION DAILY 08/21/19 Cephalexin [Keflex] 500 mg PO TID #15 cap 08/23/19 Following Prescrptions Were Given to Patient: Cephalexin [Keflex] 500 mg PO TID #15 cap Transmission Status: Received by [id number] Primary Care Physician: Lavelle Nolasco MD [Primary Care Provider] - Please Follow Up With: Lavelle Nolasco MD Disposition: Home Minutes spent on discharge:: 35 Patient Condition:: Stable Medical Necessity - Tobacco Use Smoking Status: Current every day smoker Tobacco Use: Cigarettes Meaningful Use Info Meaningful Use Diagnoses (Choose all that apply): None applicable
== END 2019-08-23 11:36 | disposition home health service (06) ==
LOC: ED 16:28 → PCU 20:11
PROVIDERS: Emergency Medicine; Nurse Practitioner Family; Admitting Provider Hospitalist; Emergency Provider Emergency Medicine; PCP Internal Medicine; Visit Provider Internal Medicine
DX: I95.1 Orthostatic hypotension (principal); I10 Essential (primary) hypertension; J44.9 Chronic obstructive pulmonary disease, unspecified; J96.11 Chronic respiratory failure with hypoxia; N39.0 Urinary tract infection, site not specified; B96.20 Unspecified Escherichia coli [E. coli] as the cause of diseases classified elsewhere; N40.0 Benign prostatic hyperplasia without lower urinary tract symptoms; F17.210 Nicotine dependence, cigarettes, uncomplicated; I73.9 Peripheral vascular disease, unspecified; E78.5 Hyperlipidemia, unspecified; K21.9 Gastro-esophageal reflux disease without esophagitis; D53.9 Nutritional anemia, unspecified; E87.6 Hypokalemia; E87.1 Hypo-osmolality and hyponatremia; Z99.81 Dependence on supplemental oxygen; Z79.899 Other long term (current) drug therapy; Z79.82 Long term (current) use of aspirin; Z85.118 Personal history of other malignant neoplasm of bronchus and lung
CPT/HCPCS: 36415; 36591; 71275; 80048; 80076; 81001; 82533; 83735; 84443; 84484; 85025; 85027; 87086; 87088; 87186; 87635; 93005; 93306; 94640; 96361; 96365; 96366; 96372; 96375; 97110; 97162; 97166; 97530; 97802; 99218; 99251; 99285; 99406; G2023; J7030; J7050; Q9967; A4216; G0378; G0463; J0696; J0834; J3490; U0004